=== PATIENT | female | born 1965 | race Caucasian/White ===

== ENCOUNTER 2023-05-29 09:38 | Inpatient (IN) | payer MEDICARE, OTHER ==
--- NOTE | 2023-05-29 10:05 | ED ---
General Adult HPI - General Chief complaint: Weakness Stated complaint: Weakness Time Seen by Provider: 05/29/23 09:43 Source: patient, EMS Mode of arrival: EMS Limitations: no limitations - History of Present Illness Initial comments: Patient is a pleasant 57-year-old female presenting to the emergency department with concerns for general weakness. Onset of symptoms was just yesterday. Patient feels weak all over. Patient is having difficulty using the restroom and had to use her parents wheelchair. No isolated area of weakness. No confusion. Patient did have 1 fall. Patient has noticed swelling since yesterday diffusely. Patient feels thirsty however states she has been eating and drinking normally. No difficulty or problems or changes with urination. No dyspnea. History of Ortez - Related Data Allergies Allergy/AdvReac Type Severity Reaction Status Date / Time Penicillins Allergy Anaphylaxis Verified 05/29/23 09:49 meperidine [From Demerol] AdvReac Unknown Verified 05/29/23 09:49 Review of Systems ROS Statement: Those systems with pertinent positive or pertinent negative responses have been documented in the HPI. ROS Other: All systems not noted in ROS Statement are negative. Constitutional: Denies: fever Eyes: Denies: eye pain ENT: Denies: ear pain Respiratory: Denies: dyspnea Cardiovascular: Denies: chest pain Endocrine: Reports: fatigue Gastrointestinal: Denies: abdominal pain Neurological: Reports: as per HPI. Denies: headache Past Medical History Past Medical History: Fibromyalgia Additional Past Medical History / Comment(s): interstitial cystitis, NALD, DDD, OA, gastroparesis, liver lesion, IBS, jayce danlos syndrome Past Surgical History: Appendectomy, Hysterectomy Additional Past Surgical History / Comment(s): exploratory lap, lymph node removal left leg, blood poisoning, spinal fusion, bladder mesh, endometrosis surgery, polyp removal Past Psychological History: Anxiety, Depression, Panic Disorder, PTSD Smoking Status: Current every day smoker, Light tobacco smoker Past Alcohol Use History: None Reported Past Drug Use History: None Reported General Exam Limitations: no limitations General appearance: alert, in no apparent distress Head exam: Present: atraumatic Eye exam: Present: normal appearance, PERRL, EOMI, other (Mild infraorbital edema) ENT exam: Present: mucous membranes dry Neck exam: Present: normal inspection Respiratory exam: Present: normal lung sounds bilaterally Cardiovascular Exam: Present: regular rate, normal rhythm GI/Abdominal exam: Present: soft. Absent: distended, tenderness Extremities exam: Present: pedal edema Neurological exam: Present: alert, oriented X3, CN II-XII intact. Absent: motor sensory deficit Expanded Motor strength exam: RUE: 5, LUE: 5, RLE: 5, LLE: 5 Eye Response: (4) open spontaneously Motor Response: (6) obeys commands Verbal Response: (5) oriented Psychiatric exam: Present: normal affect, normal mood Skin exam: Present: normal color Course Vital Signs 05/29/23 05/29/23 09:40 14:00 Temperature 97.8 F 98.5 F Pulse Rate 64 77 Respiratory 18 20 Rate Blood Pressure 111/60 127/70 O2 Sat by Pulse 95 96 Oximetry EKG Findings - EKG Results: EKG: interpreted by KALYN, sinus rhythm, normal axis, normal QRS, normal ST/T Medical Decision Making - Medical Decision Making Was pt. sent in by a medical professional or institution (, PA, TUNNEL ELASTIC OPERATOR LOCKSTITCH, urgent care, hospital, or long term...) When possible be specific @ -No Did you speak to anyone other than the patient for history (EMS, parent, family, police, friend...)? What history was obtained from this source @ -Family arrives later and adds that patient has actually had 3 syncopal episodes in the last 24 hours. Patient adds that she has been having some discomfort in her chest as well. Did you review nursing and triage notes (agree or disagree)? Why? @ -I reviewed and agree with nursing and triage notes Were old charts reviewed (outside hosp., previous admission, EMS record, old EKG, old radiological studies, urgent care reports/EKG's, long term records)? Report findings @ -No old charts were reviewed Differential Diagnosis (chest pain, altered mental status, abdominal pain women, abdominal pain men, vaginal bleeding, weakness, fever, dyspnea, syncope, headache, dizziness, GI bleed, back pain, seizure, CVA, palpatations, mental health, musculoskeletal)? @ -Differential Syncope: Valvular disease, hypertrophic cardiomyopathy, pulmonary embolism, tamponade, tachycardia, bradycardia, NJ, hypovolemia, hemorrhage, dissection, anemia, intracranial hemorrhage, seizure, hypoglycemia, carbon monoxide poisoning, this is not meant to be an all-inclusive list. EKG interpreted by me (3pts min.). @ -As above X-rays interpreted by me (1pt min.). @ -Chest x-ray shows no acute process CT interpreted by me (1pt min.). @ -CT brain shows no acute process U/S interpreted by me (1pt. min.). @ -None done What testing was considered but not performed or refused? (CT, X-rays, U/S, labs)? Why? @ -Added D-dimer with patient new history of syncope and chest What meds were considered but not given or refused? Why? @ -None Did you discuss the management of the patient with other professionals (professionals i.e. , PA, TUNNEL ELASTIC OPERATOR LOCKSTITCH, lab, RT, psych nurse, social problems specialist, analyst food and beverage, teacher, president and chief commercial officer, upper caser)? Give summary @ -[facility] physician, Dr. Haile covering for hospital call who will admit Was smoking cessation discussed for >3mins.? @ -No Was critical care preformed (if so, how long)? @ -No Were there social determinants of health that impacted care today? How? (Homelessness, low income, unemployed, alcoholism, drug addiction, transportation, low edu. Level, literacy, decrease access to med. care, usp, rehab)? @ -No Was there de-escalation of care discussed even if they declined (Discuss DNR or withdrawal of care, Hospice)? DNR status @ -No What co-morbidities impacted this encounter? (DM, HTN, Smoking, COPD, CAD, Cancer, CVA, ARF, Chemo, Hep., AIDS, mental health diagnosis, sleep apnea, morbid obesity)? @ -None Was patient admitted / discharged? Hospital course, mention meds given and route, prescriptions, significant lab abnormalities, going to OR and other pertinent info. @ -Patient reevaluated. Additional history stating patient has had syncopal episodes and some chest discomfort. Patient will be admitted with cardiac monitoring and further testing. Patient and family are updated. Admission orders written. Cardiac and neurology consults will be placed Undiagnosed new problem with uncertain prognosis? @ -No Drug Therapy requiring intensive monitoring for toxicity (Heparin, Nitro, Insulin, Cardizem)? @ -No Were any procedures done? @ -No Diagnosis/symptom? @ -Syncope Acute, or Chronic, or Acute on Chronic? @ -Acute Uncomplicated (without systemic symptoms) or Complicated (systemic symptoms)? @ -Default Side effects of treatment? @ -No Exacerbation, Progression, or Severe Exacerbation? @ -No Poses a threat to life or bodily function? How? (Chest pain, USA, NJ, pneumonia, PE, COPD, DKA, ARF, appy, cholecystitis, CVA, Diverticulitis, Homicidal, S uicidal, threat to staff... and all critical care pts) @ -No - Lab Data Result diagrams: 05/29/23 10:11 05/29/23 10:11 Lab Results 05/29/23 05/29/23 05/29/23 Range/Units 10:11 10:11 10:11 WBC 11.3 H (3.8-10.6) k/uL RBC 4.14 (3.80-5.40) m/uL Hgb 13.5 (11.4-16.0) gm/dL Hct 40.4 (34.0-46.0) % MCV 97.4 (80.0-100.0) fL MCH 32.6 (25.0-35.0) pg MCHC 33.5 (31.0-37.0) g/dL RDW 13.6 (11.5-15.5) % Plt Count 157 (150-450) k/uL MPV 8.6 Neutrophils % 54 % Lymphocytes % 38 % Monocytes % 5 % Eosinophils % 2 % Basophils % 1 % Neutrophils # 6.0 (1.3-7.7) k/uL Lymphocytes # 4.2 (1.0-4.8) k/uL Monocytes # 0.5 (0-1.0) k/uL Eosinophils # 0.2 (0-0.7) k/uL Basophils # 0.1 (0-0.2) k/uL PT 11.6 (10.0-12.5) sec INR 1.1 (<1.2) APTT 25.0 (22.0-30.0) sec Sodium 136 L (137-145) mmol/L Potassium 4.2 (3.5-5.1) mmol/L Chloride 105 (98-107) mmol/L Carbon Dioxide 26 (22-30) mmol/L Anion Gap 5 mmol/L BUN 14 (7-17) mg/dL Creatinine 0.67 (0.52-1.04) mg/dL Est GFR (CKD-EPI)AfAm >90 (>60 ml/min/1.73 sqM) Est GFR (CKD-EPI)NonAf >90 (>60 ml/min/1.73 sqM) Glucose 90 (74-99) mg/dL Plasma Lactic Acid Margarito (0.7-2.0) mmol/L Calcium 8.8 (8.4-10.2) mg/dL Magnesium 2.0 (1.6-2.3) mg/dL Total Bilirubin 0.4 (0.2-1.3) mg/dL AST 45 H (14-36) U/L ALT 24 (4-34) U/L Alkaline Phosphatase 65 (38-126) U/L Creatine Kinase 557 H (30-135) U/L Troponin I (0.000-0.034) ng/mL NT-Pro-B Natriuret Pep 1120 pg/mL Total Protein 6.6 (6.3-8.2) g/dL Albumin 4.2 (3.5-5.0) g/dL TSH 0.427 L (0.465-4.680) mIU/L Urine Color Urine Appearance (Clear) Urine pH (5.0-8.0) Ur Specific [place] (1.001-1.035) Urine Protein (Negative) Urine Glucose (UA) (Negative) Urine Ketones (Negative) Urine Blood (Negative) Urine Nitrite (Negative) Urine Bilirubin (Negative) Urine Urobilinogen (<2.0) mg/dL Ur Leukocyte Esterase (Negative) Urine RBC (0-5) /hpf Urine WBC (0-5) /hpf Urine WBC Clumps (None) /hpf Ur Squamous Epith Cells (0-4) /hpf Urine Bacteria (None) /hpf Urine Mucus (None) /hpf 05/29/23 05/29/23 05/29/23 Range/Units 10:11 10:11 10:11 WBC (3.8-10.6) k/uL RBC (3.80-5.40) m/uL Hgb (11.4-16.0) gm/dL Hct (34.0-46.0) % MCV (80.0-100.0) fL MCH (25.0-35.0) pg MCHC (31.0-37.0) g/dL RDW (11.5-15.5) % Plt Count (150-450) k/uL MPV Neutrophils % % Lymphocytes % % Monocytes % % Eosinophils % % Basophils % % Neutrophils # (1.3-7.7) k/uL Lymphocytes # (1.0-4.8) k/uL Monocytes # (0-1.0) k/uL Eosinophils # (0-0.7) k/uL Basophils # (0-0.2) k/uL PT (10.0-12.5) sec INR (<1.2) APTT (22.0-30.0) sec Sodium (137-145) mmol/L Potassium (3.5-5.1) mmol/L Chloride (98-107) mmol/L Carbon Dioxide (22-30) mmol/L Anion Gap mmol/L BUN (7-17) mg/dL Creatinine (0.52-1.04) mg/dL Est GFR (CKD-EPI)AfAm (>60 ml/min/1.73 sqM) Est GFR (CKD-EPI)NonAf (>60 ml/min/1.73 sqM) Glucose (74-99) mg/dL Plasma Lactic Acid Margarito 1.2 (0.7-2.0) mmol/L Calcium (8.4-10.2) mg/dL Magnesium (1.6-2.3) mg/dL Total Bilirubin (0.2-1.3) mg/dL AST (14-36) U/L ALT (4-34) U/L Alkaline Phosphatase (38-126) U/L Creatine Kinase (30-135) U/L Troponin I 0.012 (0.000-0.034) ng/mL NT-Pro-B Natriuret Pep pg/mL Total Protein (6.3-8.2) g/dL Albumin (3.5-5.0) g/dL TSH (0.465-4.680) mIU/L Urine Color Colorless Urine Appearance Clear (Clear) Urine pH 5.0 (5.0-8.0) Ur Specific [place] 1.007 (1.001-1.035) Urine Protein Negative (Negative) Urine Glucose (UA) 4+ H (Negative) Urine Ketones Negative (Negative) Urine Blood Negative (Negative) Urine Nitrite Positive H (Negative) Urine Bilirubin Negative (Negative) Urine Urobilinogen <2.0 (<2.0) mg/dL Ur Leukocyte Esterase Small H (Negative) Urine RBC 1 (0-5) /hpf Urine WBC 13 H (0-5) /hpf Urine WBC Clumps Few H (None) /hpf Ur Squamous Epith Cells 1 (0-4) /hpf Urine Bacteria Many H (None) /hpf Urine Mucus Rare H (None) /hpf Disposition Clinical Impression: Syncope Disposition: ADMITTED IP TO THIS HOSP Is patient prescribed a controlled substance at d/c from ED?: No Referrals: Nonstaff,Physician [Primary Care Provider] - 1-2 days Time of Disposition: 15:28
[2023-05-29 10:36] LABS: Basophils # (A) 0.1 k/uL (0-0.2); Basophils % (A) 1 %; Eosinophils # (A) 0.2 k/uL (0-0.7); Eosinophils % (A) 2 %; HCT 40.4 % (34.0-46.0); HGB 13.5 gm/dL (11.4-16.0); Lymphocytes # (A) 4.2 k/uL (1.0-4.8); Lymphocytes % (A) 38 %; MCH 32.6 pg (25.0-35.0); MCHC 33.5 g/dL (31.0-37.0); MCV 97.4 fL (80.0-100.0); Mean Platelet Volume 8.6; Monocytes # (A) 0.5 k/uL (0-1.0); Monocytes % (A) 5 %; Neutrophils % (A) 54 %; Platelet Count 157 k/uL (150-450); RBC 4.14 m/uL (3.80-5.40); RDW 13.6 % (11.5-15.5); WBC 11.3 k/uL (3.8-10.6)
[2023-05-29 10:50] LABS: ALT 24 U/L (4-34); AST 45 U/L (14-36); African American GFR (CKD) >90 (>60 ml/min/1.73 sqM); Albumin 4.2 g/dL (3.5-5.0); Alkaline Phosphatase 65 U/L (38-126); Anion Gap 5 mmol/L; Blood Urea Nitrogen 14 mg/dL (7-17); Calcium 8.8 mg/dL (8.4-10.2); Carbon Dioxide 26 mmol/L (22-30); Chloride 105 mmol/L (98-107); Creatine Kinase 557 U/L (30-135); Glucose 90 mg/dL (74-99); Non-African American GFR(CKD) >90 (>60 ml/min/1.73 sqM); Potassium 4.2 mmol/L (3.5-5.1); Sodium 136 mmol/L (137-145); Total Bilirubin 0.4 mg/dL (0.2-1.3); Total Protein 6.6 g/dL (6.3-8.2)
--- NOTE | 2023-05-29 10:50 | XR ---
EXAMINATION TYPE: XR chest 2V DATE OF EXAM: 05/29/2023 COMPARISON: NONE HISTORY: Weakness and bilateral edema TECHNIQUE: Frontal and lateral views of the chest are obtained. FINDINGS: There is right middle lobe increased opacity on 2 views. Left lung is clear. The cardiac s ilhouette size is within normal limits. Surgical change to the cervical spine is noted. IMPRESSION: Right middle lobe acute infiltrate and/or atelectasis.
[2023-05-29 10:59] LABS: NT-Pro-B-Type Natriuretic Pept 1120 pg/mL
[2023-05-29 11:01] LABS: INR 1.1 (<1.2); Prothrombin Time 11.6 sec (10.0-12.5)
[2023-05-29 12:32] LABS: Appearance,Urine Clear (Clear); Bacteria,Urine Many /hpf; Bilirubin,Urine Negative (Negative); Blood,Urine Negative (Negative); Color,Urine Colorless; Glucose,Urine (UA) 4+ (Negative); Ketones,Urine Negative (Negative); Leukocyte Esterase,Urine Small (Negative); Mucus,Urine Rare /hpf; Nitrite,Urine Positive (Negative); Protein,Urine Negative (Negative); RBC,Urine 1 /hpf (0-5); Specific Gravity,Urine 1.007 (1.001-1.035); Squamous Epithelial Cell,Urine 1 /hpf (0-4); Urobilinogen,Urine <2.0 mg/dL (<2.0); WBC,Urine 13 /hpf (0-5)
--- NOTE | 2023-05-29 14:29 | CT ---
EXAMINATION TYPE: CT brain wo con CT DLP: 1093.4 mGycm, Automated exposure control for dose reduction was used. DATE OF EXAM: 05/29/2023 2:06 PM COMPARISON: None. CLINICAL INDICATION:Female, 57 years old with history of weak, EYE SWELLING, weakness, UNEXPLAINED BR UISING TECHNIQUE: Brain: Axial CT images of the brain were obtained with coronal and sagittal reformats created and rev iewed. Contrast used: None. Oral contrast used: None. FINDINGS: Brain: Extra-axial spaces: No abnormal extra-axial fluid collections. Ventricular system: Within normal limits Cerebral parenchyma: No acute intraparenchymal hemorrhage or mass effect. The gonzalez-white junction is well differentiated. Cerebellum: Unremarkable. Mass effect: No evidence of midline shift. Intracranial vasculature: Atherosclerotic calcifications of the intracranial vessels. Soft tissues: Normal. Calvarium/osseous structures: No depressed skull fracture. Paranasal sinuses and mastoid air cells: Mild scattered paranasal sinus disease. Visualized orbits: Orbital contents are intact. The intraconal extraconal fat is maintained. IMPRESSION: No acute intracranial process.
[2023-05-29] MEDS ORDERED: NALOXONE 0.4 MG/ML 1 ML VIAL IV PRN (15:23)
[2023-05-29] MEDS ORDERED: ACETAMINOPHEN TAB 325 MG TAB PO PRN (15:23)
[2023-05-29] MEDS ORDERED: LORazepam 0.5 MG TAB PO PRN (15:23)
[2023-05-29 17:30] LABS: T4, Free (Free Thyroxine) 1.22 ng/dL (0.78-2.19)
[2023-05-29] MEDS: LORazepam 2 MG/ML INJ IV STA (17:37)
[2023-05-29] MEDS ORDERED: DIPHENOX-ATROP 2.5-0.025 MG 1 EACH TAB PO PRN (17:57)
[2023-05-29] MEDS ORDERED: clonazePAM 1 MG TAB PO PRN (17:57)
--- NOTE | 2023-05-29 18:41 | P.HPIM ---
History of Present Illness H&P Date: 05/29/23 Chief Complaint: Syncope/fall 57-year-old female, history of hypertension, hyperlipidemia, hypothyroidism, diabetes mellitus type 2 presenting to the emergency department with concerns for general weakness. Onset of symptoms was just yesterday. Patient feels weak all over. Patient is having difficulty using the restroom and had to use her parents wheelchair. No isolated area of weakness. No confusion. Patient does report syncopal episode with fall. Patient has noticed swelling since yesterday diffusely. Patient feels thirsty however states she has been eating and drinking normally. No difficulty or problems or changes with urination. No dyspnea. History of Ortez -Patient is a very poor historian and upon further questioning patient reports that she has had multiple syncopal episodes and some chest discomfort in the past week which prompted her to present to ED for further evaluation Blood work completed in ED reveals WBC of 11.3, hemoglobin of 13.5 and platelet count of 157, sodium 136, potassium 4.2, BUN/creatinine of 14/0.67 and blood glucose of 90, CK elevated at 557 troponin is less than 0.012, BNP of 1120, TSH low at 0.427 Urine analysis reveals 4+ glucose nitrates and leukocyte esterase positive, WBCs and many bacteria CT of the brain is negative for any acute intracranial process Chest x-ray reveals right middle lobe acute infiltrate Review of Systems REVIEW OF SYSTEMS: CONSTITUTIONAL: No fever, no malaise, no fatigue. HEENT: No recent visual problems or hearing problems. Denied any sore throat. CARDIOVASCULAR: No chest pain, orthopnea, PND, no palpitations, no syncope. PULMONARY: No shortness of breath, no cough, no hemoptysis. GASTROINTESTINAL: No diarrhea, no nausea, no vomiting, no abdominal pain. NEUROLOGICAL: No headaches, no weakness, no numbness. HEMATOLOGICAL: Denies any bleeding or petechiae. GENITOURINARY: Denies any burning micturition, frequency, or urgency. MUSCULOSKELETAL/RHEUMATOLOGICAL: Denies any joint pain, swelling, or any muscle pain. ENDOCRINE: Denies any polyuria or polydipsia. The rest of the 14-point review of systems is negative. Past Medical History Past Medical History: Fibromyalgia Additional Past Medical History / Comment(s): interstitial cystitis, NALD, DDD, OA, gastroparesis, liver lesion, IBS, jayce danlos syndrome Past Surgical History: Appendectomy, Hysterectomy Additional Past Surgical History / Comment(s): exploratory lap, lymph node removal left leg, blood poisoning, spinal fusion, bladder mesh, endometrosis surgery, polyp removal Past Psychological History: Anxiety, Depression, Panic Disorder, PTSD Smoking Status: Current every day smoker, Light tobacco smoker Past Alcohol Use History: None Reported Past Drug Use History: None Reported Medications and Allergies Home Medications Medication Instructions Recorded Confirmed Type Albuterol Inhaler [Ventolin Hfa 1 - 2 puff INHALATION RT-Q6H PRN 05/29/23 05/29/23 History Inhaler] Buprenorphine HCl/Naloxone HCl 1 film SL DAILY 05/29/23 05/29/23 History [Buprenorphine-Nalox 2-0.5MG Fm] Diphenoxylate HCl/Atropine 1 tab PO QID PRN 05/29/23 05/29/23 History [Lomotil 2.5-0.025 mg Tablet] Empagliflozin [Jardiance] 25 mg PO DAILY 05/29/23 05/29/23 History Gabapentin 600 mg PO TID 05/29/23 05/29/23 History Levothyroxine Sodium [Synthroid] 50 mcg PO DAILY 05/29/23 05/29/23 History Midodrine [ProAmatine] 5 mg PO BID 05/29/23 05/29/23 History Ondansetron Odt [Zofran Odt] 4 mg PO Q6H PRN MDD A 05/29/23 05/29/23 History Oxybutynin Chloride [oxyBUTYnin 10 mg PO HS 05/29/23 05/29/23 History chloride ER] Prazosin [Minipress] 1 mg PO HS 05/29/23 05/29/23 History Rosuvastatin Calcium 5 mg PO HS 05/29/23 05/29/23 History clonazePAM [KlonoPIN] 1 mg PO BID 05/29/23 05/29/23 History clonazePAM [KlonoPIN] 1 mg PO DAILY PRN 05/29/23 05/29/23 History fluvoxaMINE MALEATE [Luvox] 150 mg PO BID 05/29/23 05/29/23 History glipiZIDE [Glucotrol] 10 mg PO AC-BRKFST 05/29/23 05/29/23 History hydrOXYzine HCL [Atarax] 50 mg PO HS 05/29/23 05/29/23 History lidocaine HCL [Aspercreme 1 applic TOPICAL QID PRN 05/29/23 05/29/23 History Lidocaine] metFORMIN HCL ER [Glucophage XR] 1,000 mg PO W/SUPPER 05/29/23 05/29/23 History methocarbamoL [Robaxin] 500 mg PO TID PRN 05/29/23 05/29/23 History sitaGLIPtin [Januvia] 100 mg PO DAILY 05/29/23 05/29/23 History tiZANidine [Zanaflex] 4 mg PO Q8HR PRN 05/29/23 05/29/23 History traZODone HCL [Desyrel] 50 mg PO HS 05/29/23 05/29/23 History Allergies Allergy/AdvReac Type Severity Reaction Status Date / Time Penicillins Allergy Anaphylaxis Verified 05/29/23 17:43 meperidine [From Demerol] AdvReac Unknown Verified 05/29/23 17:43 Physical Exam Vitals: Vital Signs Temp Pulse Resp BP Pulse Ox 05/29/23 16:42 83 18 97/50 96 05/29/23 14:00 98.5 F 77 20 127/70 96 05/29/23 09:40 97.8 F 64 18 111/60 95 Intake and Output 05/29/23 05/29/23 05/29/23 06:59 14:59 22:59 Other: Weight 104.326 kg General appearance: alert, in no apparent distress Head exam: Present: atraumatic Eye exam: Present: normal appearance, PERRL, EOMI, other (Mild infraorbital edema) ENT exam: Present: mucous membranes dry Respiratory exam: Present: normal lung sounds bilaterally Cardiovascular Exam: Present: regular rate, normal rhythm GI/Abdominal exam: Present: soft. Absent: distended, tenderness Extremities exam: Present: pedal edema Neurological exam: Present: alert, oriented X3, CN II-XII intact. Absent: motor sensory deficit Motor strength exam: RUE: 5, LUE: 5, RLE: 5, LLE: 5 Psychiatric exam: Present: normal affect, normal mood Skin exam: Present: normal color Results CBC & Chem 7: 05/29/23 10:11 05/29/23 10:11 Labs: Abnormal Lab Results - Last 24 Hours (Table) 05/29/23 05/29/23 05/29/23 Range/Units 10:11 10:11 10:11 WBC 11.3 H (3.8-10.6) k/uL Sodium 136 L (137-145) mmol/L AST 45 H (14-36) U/L Creatine Kinase 557 H (30-135) U/L TSH 0.427 L (0.465-4.680) mIU/L Urine Glucose (UA) 4+ H (Negative) Urine Nitrite Positive H (Negative) Ur Leukocyte Esterase Small H (Negative) Urine WBC 13 H (0-5) /hpf Urine WBC Clumps Few H (None) /hpf Urine Bacteria Many H (None) /hpf Urine Mucus Rare H (None) /hpf Assessment and Plan Assessment: 1. Acute syncope; patient reports multiple episodes of syncope and fall; reports last episode was associated with chest discomfort; we will admit to telemetry; monitor EKG and trend troponin -- Cardiology is consulted; appreciate recommendations 2. UTI; UA is positive for WBCs, bacteria, leukocyte esterase and nitrates; patient has been placed on IV Levaquin; adjust antibiotics once culture results are available 3. Possible pneumonia; patient has been placed on Levaquin 500 milligrams daily; will add bronchodilator nebulizer treatments; monitor CBC, CRP and procalcitonin 4. Fall with elevated CK; mild rhabdomyolysis; continue with IV fluid hydration 5. Hypertension; prazosin 1 mg nightly 6. Hyperlipidemia; Crestor 5 mg p.o. nightly 7. Hypothyroidism; patient is currently on levothyroxine 50 mcg daily; TSH is low with normal free T4 and T3; will continue same dose 8. Diabetes mellitus type 2; patient is currently on glipizide, Jardiance and metformin; we will hold glipizide while inpatient; monitor Accu-Cheks ACHS with insulin sliding scale 9. Anxiety/obsessive-compulsive disorder; patient is currently on Luvox 150 mg twice daily, Klonopin 1 mg twice daily, hydroxyzine 50 mg p.o. nightly and trazodone 50 mg nightly DVT prophylaxis; SCDs/subcu heparin CODE STATUS; full code
[2023-05-29] MEDS: MORPHINE SULFATE 4 MG/ML SYRINGE IV PRN (19:22)
[2023-05-29] MEDS: LEVOFLOXACIN 500MG-D5W PMX 500 MG in DEXTROSE/WATER 1 100ML.BAG IVPB SCH (19:27)
[2023-05-29] MEDS: GABAPENTIN 300 MG CAP PO SCH (22:07)
[2023-05-29] MEDS: ATORVASTATIN 10 MG TAB PO SCH (22:08)
[2023-05-29] MEDS: PRAZOSIN 1 MG CAP PO SCH (22:09)
[2023-05-29] MEDS: MIDODRINE 5 MG TAB PO SCH (22:09)
[2023-05-29] MEDS: traZODone HCL 50 MG TAB PO SCH (22:09)
[2023-05-29] MEDS: clonazePAM 1 MG TAB PO SCH (22:09)
[2023-05-29] MEDS: tiZANidine 4 MG TAB PO PRN (22:52)
[2023-05-29] MEDS: OXYBUTYNIN 10 MG TAB.ER.24 PO SCH (22:52)
[2023-05-29] MEDS: hydrOXYzine HCL 25 MG TAB PO SCH (22:52)
[2023-05-30] MEDS: LEVOTHYROXINE 50 MCG TAB PO SCH (05:39)
[2023-05-30] MEDS: metFORMIN 500 MG TAB PO SCH (08:07)
[2023-05-30 08:15] LABS: Basophils % (A) 1 %; Eosinophils # (A) 0.3 k/uL (0-0.7); Eosinophils % (A) 5 %; HCT 40.9 % (34.0-46.0); HGB 13.1 gm/dL (11.4-16.0); Lymphocytes # (A) 3.5 k/uL (1.0-4.8); Lymphocytes % (A) 55 %; MCH 31.9 pg (25.0-35.0); MCHC 32.1 g/dL (31.0-37.0); MCV 99.4 fL (80.0-100.0); Mean Platelet Volume 8.2; Monocytes # (A) 0.4 k/uL (0-1.0); Monocytes % (A) 6 %; Neutrophils % (A) 31 %; Platelet Count 137 k/uL (150-450); RBC 4.12 m/uL (3.80-5.40); RDW 13.7 % (11.5-15.5); WBC 6.3 k/uL (3.8-10.6)
[2023-05-30 08:25] LABS: ALT 24 U/L (4-34); AST 51 U/L (14-36); African American GFR (CKD) >90 (>60 ml/min/1.73 sqM); Albumin 3.7 g/dL (3.5-5.0); Albumin/Globulin Ratio 1.6; Alkaline Phosphatase 86 U/L (38-126); Anion Gap 6 mmol/L; Blood Urea Nitrogen 14 mg/dL (7-17); Calcium 8.5 mg/dL (8.4-10.2); Carbon Dioxide 29 mmol/L (22-30); Chloride 105 mmol/L (98-107); Globulin 2.3 g/dL; Glucose 162 mg/dL (74-99); Non-African American GFR(CKD) 89 (>60 ml/min/1.73 sqM); Sodium 140 mmol/L (137-145); Total Bilirubin 0.2 mg/dL (0.2-1.3)
[2023-05-30] MEDS: DAPAGLIFLOZIN PROPANEDIOL 10 MG TABLET PO SCH (08:44)
[2023-05-30] MEDS: NALOXONE HCL SUBLINGUAL SCH (09:20)
[2023-05-30] MEDS: [UNRECOGNIZED DRUG - OTHER] SUBLINGUAL SCH (09:20)
[2023-05-30] MEDS: BUPRENORPHINE HCL SUBLINGUAL SCH (09:20)
--- NOTE | 2023-05-30 11:22 | P.CNNES ---
History of Present Illness Consult date: 05/30/23 Requesting physician: Salvatore Mcelroy Reason for Consult: syncope History of Present Illness: This is a 57-year-old woman who presented emergency department because of recurrent passing out episode with posturing/covulsion. According to the patient Wednesday night to overnight that day she stated that the she was a try to the bathroom and the she was having pain throughout all her body all extremities she stated that she was a passing out intermittently in and out very briefly and she stated that the she is with these episodes she'll have posture of her extremities as well as face in which she feels the face is rotated towards one side and body will be posturing and is very brief. She stated that she had a urinary incontinence. She had numerous episodes like dose. In the past she would pass out but she stated that the that happened because her blood pressure would go down. She stated in the last week her blood pressure seems to be coming down. She stated that she has orthostatic hypotension and she is on mid odrine. She is on the the same medication for a while and there is no new medication. She was doing good with midodrine and has been on it since October 2022. She stated that yesterday her oxygen the desatted said to the 50s to 60s. She denies any official history of seizures. She does have a sister that has history of seizure. She feels her whole extremities was the swelling as well as face but currently it's somewhat resolving. She has underlying history of neuropathy of the feet, anxiety, major depression, diabetes. She has also history of CPTSD. Of note for her neuropathy patient is on gabapentin 600 mg 1 tablet the 3 times a day. She is on Midrin 1 mg twice a day, Klonopin 1 mg twice a day, trazodone, tizanidine, prazosin. Some of the workup during his hospital visit consisted of: CK levels 557, AST is 45, sodium is 136, glucose is 90, TSH is 0.4-7 the free T4 is 1. due to Calcium is 8.8 Plasma lactic acid vein: 1.2 Urinalysis seems possible for acute UTI. Then nitrate is positive, leukocyte esterase small, urine bacteria is many. CT of the head is reported as no acute intracranial process. Personally reviewed the CT and agree with the report. EKG is reported as sinus rhythm. Intermediate axis. Low QRS voltage. Review of Systems Review of system: The 12 point system was reviewed and apparent positive and negative per HPI. Past Medical History Past Medical History: Fibromyalgia Additional Past Medical History / Comment(s): interstitial cystitis, NALD, DDD, OA, gastroparesis, liver lesion, IBS, jayce danlos syndrome Past Surgical History: Appendectomy, Hysterectomy Additional Past Surgical History / Comment(s): exploratory lap, lymph node removal left leg, blood poisoning, spinal fusion, bladder mesh, endometrosis surgery, polyp removal Past Psychological History: Anxiety, Depression, Panic Disorder, PTSD Smoking Status: Current every day smoker, Light tobacco smoker Past Alcohol Use History: None Reported Past Drug Use History: None Reported Medications and Allergies Home Medications Medication Instructions Recorded Confirmed Type Albuterol Inhaler [Ventolin Hfa 1 - 2 puff INHALATION RT-Q6H PRN 05/29/23 05/29/23 History Inhaler] Buprenorphine HCl/Naloxone HCl 1 film SL DAILY 05/29/23 05/29/23 History [Buprenorphine-Nalox 2-0.5MG Fm] Diphenoxylate HCl/Atropine 1 tab PO QID PRN 05/29/23 05/29/23 History [Lomotil 2.5-0.025 mg Tablet] Empagliflozin [Jardiance] 25 mg PO DAILY 05/29/23 05/29/23 History Gabapentin 600 mg PO TID 05/29/23 05/29/23 History Levothyroxine Sodium [Synthroid] 50 mcg PO DAILY 05/29/23 05/29/23 History Midodrine [ProAmatine] 5 mg PO BID 05/29/23 05/29/23 History Ondansetron Odt [Zofran Odt] 4 mg PO Q6H PRN MDD A 05/29/23 05/29/23 History Oxybutynin Chloride [oxyBUTYnin 10 mg PO HS 05/29/23 05/29/23 History chloride ER] Prazosin [Minipress] 1 mg PO HS 05/29/23 05/29/23 History Rosuvastatin Calcium 5 mg PO HS 05/29/23 05/29/23 History clonazePAM [KlonoPIN] 1 mg PO BID 05/29/23 05/29/23 History clonazePAM [KlonoPIN] 1 mg PO DAILY PRN 05/29/23 05/29/23 History fluvoxaMINE MALEATE [Luvox] 150 mg PO BID 05/29/23 05/29/23 History glipiZIDE [Glucotrol] 10 mg PO AC-BRKFST 05/29/23 05/29/23 History hydrOXYzine HCL [Atarax] 50 mg PO HS 05/29/23 05/29/23 History lidocaine HCL [Aspercreme 1 applic TOPICAL QID PRN 05/29/23 05/29/23 History Lidocaine] metFORMIN HCL ER [Glucophage XR] 1,000 mg PO W/SUPPER 05/29/23 05/29/23 History methocarbamoL [Robaxin] 500 mg PO TID PRN 05/29/23 05/29/23 History sitaGLIPtin [Januvia] 100 mg PO DAILY 05/29/23 05/29/23 History tiZANidine [Zanaflex] 4 mg PO Q8HR PRN 05/29/23 05/29/23 History traZODone HCL [Desyrel] 50 mg PO HS 05/29/23 05/29/23 History Allergies Allergy/AdvReac Type Severity Reaction Status Date / Time Penicillins Allergy Anaphylaxis Verified 05/29/23 17:43 meperidine [From Demerol] AdvReac Unknown Verified 05/29/23 17:43 Physical Examination - Vital Signs Vital Signs: Vital Signs Temp Pulse Resp BP Pulse Ox 05/30/23 08:53 87 16 130/74 95 05/30/23 07:39 57 L 16 98/58 95 05/30/23 04:00 53 L 18 115/62 96 05/30/23 02:16 61 16 104/70 95 05/29/23 23:57 64 100/53 96 05/29/23 22:04 87 20 120/65 95 05/29/23 19:12 80 18 112/66 97 05/29/23 16:42 83 18 97/50 96 05/29/23 14:00 98.5 F 77 20 127/70 96 GENERAL: The patient is lying in bed and is not in acute distress. NEUROLOGICAL: Higher mental function: The patient is awake, alert, oriented to self, place and time. Patient is following commands. No aphasia and no neglect. Cranial nerves: The pupils are round, equal and reactive to light and accommodation. Visual daniels are full to confrontation throughout. Extraocular movement is intact no nystagmus is noted. Facial sensation is normal to touch throughout. Does appear to have swelling of face that is mild.The facial strength is normal throughout. Hearing is normal bilaterally to hand rub. Tongue is midline and moved [id number] without any difficulty. No dysarthria is noted. Shoulder shrug is normal bilaterally. Motor: The strength is 5 over 5 throughout. Normal tone and bulk. Has swelling in distal extremities that is mild. Cerebellum: Normal finger to nose heel to chin bilaterally. Sensation: Sensation is normal to touch throughout. Reflexes (right/left): 2+ throughout. Plantars are downgoing bilaterally. Results - Laboratory Findings CBC and BMP: 05/30/23 07:44 05/30/23 07:44 Abnormal Lab Findings: Abnormal Labs 05/29/23 05/29/23 05/29/23 10:11 10:11 10:11 WBC 11.3 H Plt Count Sodium 136 L Glucose AST 45 H Creatine Kinase 557 H Total Protein TSH 0.427 L Urine Glucose (UA) 4+ H Urine Nitrite Positive H Ur Leukocyte Esterase Small H Urine WBC 13 H Urine WBC Clumps Few H Urine Bacteria Many H Urine Mucus Rare H 05/30/23 05/30/23 07:44 07:44 WBC Plt Count 137 L Sodium Glucose 162 H AST 51 H Creatine Kinase Total Protein 6.0 L TSH Urine Glucose (UA) Urine Nitrite Ur Leukocyte Esterase Urine WBC Urine WBC Clumps Urine Bacteria Urine Mucus Assessment and Plan Assessment: This is a 57-year-old woman who presented emergency department because of intermittent the recurrent passing out and with these episodes she stated that t hat she was having abnormal movement of the face and posturing of extremity. She also noticed a whole body was in pain and the head swelling of her face and extremities. She stated that she passed out before but she was told is because of due to orthostatic hypotension and she is on midodrine since October 2022. Recurrent syncopal episode with convulsion/posturing: Rule out seizure. Generalized edema--unsure cause. Unsure if due to medication induced (Gabapentin usually cause peripheral edema) Possible acute UTI. Orthostatic hypotension and is on Midodrine History of an anxiety and major depression History of CPTSD Tobacco use but is cutting down (currently smoking 1-2 cigarettes daily). Family history of seizure (sister) Plan: I ordered a routine EEG to rule out any epileptiform discharge or active seizure. Also ordered MRI Brain seizure protocol. I notified the patient that I'm concerned about possible seizures from the clinical presentation as well as a family history of seizures. She wants to hold off until the workup is complete. Even if negative is negative consider starting her on Vimpat and not Keppra especially with a significant psychiatric but will defer that final decision for covering neurologist tomorrow. Per the [place] DMV if it's a seizure or syncopal episode not related to seizure, to avoid driving for 6 month until seizure-free, avoid height, avoid using heavy machinery or swimming unassisted Placed on seizure precaution and pads. Ordered orthostatic vitals. Cardiology is consulted for syncopal episodes. Patient was counseled on tobacco cessation. We'll defer the rest of the medical measure the primary and other specialists The plan is discussed with patient. Thank you for the consultation. Dr. Vallejo will resume neurology service tomorrow A.M. Time with Patient: Greater than 30
[2023-05-30 12:09] LABS: Glucose,Whole Blood 141 mg/dL (70-110)
[2023-05-30] MEDS: methocarbamoL 500 MG TAB PO PRN (13:12)
[2023-05-30] MEDS: traMADol 50 MG TAB PO PRN (13:12)
--- NOTE | 2023-05-30 13:40 | P.CRDCN ---
History of Present Illness Consult date: 05/30/23 Chief complaint: Change in mental status History of present illness: This is a 57-year-old female patient with a past medical history significant for overweight and sleep apnea currently she has not been using a CPAP machine as well as diabetes and dyslipidemia and multiple comorbid conditions. She was brought to the hospital by ambulance. The patient has been experiencing intermittent episodes of change in mental status witnessed by her sister. The change in mental status seems to be consistent with seizure. The patient has been experiencing upper and lower extremities spasming movement associated with incontinence. Beside that she describes intermittent episodes of chest discomfort. The discomfort is in the middle of the chest as a dull kind of feeling and sometimes sharp kind of feeling with no radiation to the arms or neck or shoulders or back and no heart racing or fluttering. She stated that she follows with a customer service advocate in [facility] and in January 2023 she underwent further cardiac testing including stress test and echocardiogram. She underwent workup during her hospital stay including an EKG showing sinus mechanism with no significant ST or T wave abnormalities and also she did not have any episode of arrhythmia while she is here. Troponin came in to be unremarkable. CT scan of the brain came in to be unremarkable neurology is on the case as well. The examination is remarkable for stable vital signs with regular rate and rhythm and clear breathing sounds bilaterally and no edema was noted. Assessment Change in mental status clinically is consistent with seizure Intermittent episodes of chest discomfort Multiple comorbid conditions Plan Monitor the patient for arrhythmia Obtain a copy of the previous cardiac testing including the stress test Obtain an echocardiogram with Doppler She was ruled out for acute coronary syndrome Follow-up with the patient Past Medical History Past Medical History: Fibromyalgia Additional Past Medical History / Comment(s): interstitial cystitis, NALD, DDD, OA, gastroparesis, liver lesion, IBS, jayce danlos syndrome Past Surgical History: Appendectomy, Hysterectomy Additional Past Surgical History / Comment(s): exploratory lap, lymph node removal left leg, blood poisoning, spinal fusion, bladder mesh, endometrosis surgery, polyp removal Past Psychological History: Anxiety, Depression, Panic Disorder, PTSD Smoking Status: Current every day smoker, Light tobacco smoker Past Alcohol Use History: None Reported Past Drug Use History: None Reported Medications and Allergies Home Medications Medication Instructions Recorded Confirmed Type Albuterol Inhaler [Ventolin Hfa 1 - 2 puff INHALATION RT-Q6H PRN 05/29/23 05/29/23 History Inhaler] Buprenorphine HCl/Naloxone HCl 1 film SL DAILY 05/29/23 05/29/23 History [Buprenorphine-Nalox 2-0.5MG Fm] Diphenoxylate HCl/Atropine 1 tab PO QID PRN 05/29/23 05/29/23 History [Lomotil 2.5-0.025 mg Tablet] Empagliflozin [Jardiance] 25 mg PO DAILY 05/29/23 05/29/23 History Gabapentin 600 mg PO TID 05/29/23 05/29/23 History Levothyroxine Sodium [Synthroid] 50 mcg PO DAILY 05/29/23 05/29/23 History Midodrine [ProAmatine] 5 mg PO BID 05/29/23 05/29/23 History Ondansetron Odt [Zofran Odt] 4 mg PO Q6H PRN MDD A 05/29/23 05/29/23 History Oxybutynin Chloride [oxyBUTYnin 10 mg PO HS 05/29/23 05/29/23 History chloride ER] Prazosin [Minipress] 1 mg PO HS 05/29/23 05/29/23 History Rosuvastatin Calcium 5 mg PO HS 05/29/23 05/29/23 History clonazePAM [KlonoPIN] 1 mg PO BID 05/29/23 05/29/23 History clonazePAM [KlonoPIN] 1 mg PO DAILY PRN 05/29/23 05/29/23 History fluvoxaMINE MALEATE [Luvox] 150 mg PO BID 05/29/23 05/29/23 History glipiZIDE [Glucotrol] 10 mg PO AC-BRKFST 05/29/23 05/29/23 History hydrOXYzine HCL [Atarax] 50 mg PO HS 05/29/23 05/29/23 History lidocaine HCL [Aspercreme 1 applic TOPICAL QID PRN 05/29/23 05/29/23 History Lidocaine] metFORMIN HCL ER [Glucophage XR] 1,000 mg PO W/SUPPER 05/29/23 05/29/23 History methocarbamoL [Robaxin] 500 mg PO TID PRN 05/29/23 05/29/23 History sitaGLIPtin [Januvia] 100 mg PO DAILY 05/29/23 05/29/23 History tiZANidine [Zanaflex] 4 mg PO Q8HR PRN 05/29/23 05/29/23 History traZODone HCL [Desyrel] 50 mg PO HS 05/29/23 05/29/23 History Allergies Allergy/AdvReac Type Severity Reaction Status Date / Time Penicillins Allergy Anaphylaxis Verified 05/29/23 17:43 meperidine [From Demerol] AdvReac Unknown Verified 05/29/23 17:43 Physical Exam Vitals: Vital Signs Temp Pulse Resp BP Pulse Ox 05/30/23 13:00 83 20 122/55 97 05/30/23 08:53 87 16 130/74 95 05/30/23 07:39 57 L 16 98/58 95 05/30/23 04:00 53 L 18 115/62 96 05/30/23 02:16 61 16 104/70 95 05/29/23 23:57 64 100/53 96 05/29/23 22:04 87 20 120/65 95 05/29/23 19:12 80 18 112/66 97 05/29/23 16:42 83 18 97/50 96 05/29/23 14:00 98.5 F 77 20 127/70 96 Results 05/30/23 07:44 05/30/23 07:44 Cardiac Enzymes 05/29/23 05/29/23 05/30/23 Range/Units 17:35 20:51 07:44 AST 51 H (14-36) U/L Troponin I <0.012 <0.012 (0.000-0.034) ng/mL CBC 05/30/23 Range/Units 07:44 WBC 6.3 (3.8-10.6) k/uL RBC 4.12 (3.80-5.40) m/uL Hgb 13.1 (11.4-16.0) gm/dL Hct 40.9 (34.0-46.0) % Plt Count 137 L (150-450) k/uL Comprehensive Metabolic Panel 05/30/23 Range/Units 07:44 Sodium 140 (137-145) mmol/L Potassium 4.0 (3.5-5.1) mmol/L Chloride 105 (98-107) mmol/L Carbon Dioxide 29 (22-30) mmol/L BUN 14 (7-17) mg/dL Creatinine 0.76 (0.52-1.04) mg/dL Glucose 162 H (74-99) mg/dL Calcium 8.5 (8.4-10.2) mg/dL AST 51 H (14-36) U/L ALT 24 (4-34) U/L Alkaline Phosphatase 86 (38-126) U/L Total Protein 6.0 L (6.3-8.2) g/dL Albumin 3.7 (3.5-5.0) g/dL Current Medications Generic Name Dose Route Start Last Admin Trade Name Freq PRN Reason Stop Dose Admin Acetaminophen 650 mg 05/29/23 15:23 Acetaminophen Tab 325 Mg Tab PO Q6HR PRN Mild Pain or Fever > 100.5 Atorvastatin Calcium 10 mg 05/29/23 21:00 05/29/23 22:08 Atorvastatin 10 Mg Tab PO 10 mg HS JOSE FRANCISCO Administration Clonazepam 1 mg 05/29/23 21:00 05/30/23 08:07 Clonazepam 1 Mg Tab PO 1 mg BID JOSE FRANCISCO Administration Clonazepam 1 mg 05/29/23 17:57 Clonazepam 1 Mg Tab PO DAILY PRN Anxiety Dapagliflozin 10 mg 05/30/23 09:00 05/30/23 08:44 Dapagliflozin Propanediol 10 Mg Tablet PO 10 mg DAILY JOSE FRANCISCO Administration Diphenoxylate HCl/Atropine 1 each 05/29/23 17:57 Diphenox-Atrop 2.5-0.025 Mg 1 Each Tab PO QID PRN Diarrhea Fluvoxamine Maleate 150 mg 05/29/23 21:00 05/30/23 08:45 Fluvoxamine 50 Mg Tab PO 150 mg BID JOSE FRANCISCO Administration Gabapentin 600 mg 05/29/23 22:00 05/30/23 08:44 Gabapentin 300 Mg Cap PO 600 mg TID JOSE FRANCISCO Administration Hydroxyzine HCl 50 mg 05/29/23 21:00 05/29/23 22:52 Hydroxyzine Hcl 25 Mg Tab PO 50 mg HS JOSE FRANCISCO Administration Levofloxacin 500 mg/ IV 100 mls @ 100 mls/hr 05/29/23 18:00 05/29/23 19:27 Solution IVPB 100 mls/hr Q24H JOSE FRANCISCO Administration Levothyroxine Sodium 50 mcg 05/30/23 06:30 05/30/23 05:39 Levothyroxine 50 Mcg Tab PO 50 mcg DAILY@0630 JOSE FRANCISCO Administration Lorazepam 0.5 mg 05/29/23 15:23 Lorazepam 0.5 Mg Tab PO Q6HR PRN Anxiety Metformin HCl 500 mg 05/30/23 07:30 05/30/23 08:07 Metformin 500 Mg Tab PO 500 mg BID-W/MEALS JOSE FRANCISCO Administration Methocarbamol 500 mg 05/29/23 17:57 05/30/23 13:12 Methocarbamol 500 Mg Tab PO 500 mg TID PRN Administration Muscle Pain Midodrine 5 mg 05/29/23 21:00 05/30/23 08:07 Midodrine 5 Mg Tab PO 5 mg BID JOSE FRANCISCO Administration Morphine Sulfate 4 mg 05/29/23 15:23 05/30/23 13:11 Morphine Sulfate 4 Mg/Ml Syringe IV 4 mg Q4HR PRN Administration Severe Pain (Scale 7 to 10) Naloxone HCl 0.2 mg 05/29/23 15:23 Naloxone 0.4 Mg/Ml 1 Ml Vial IV Q2M PRN Opioid Reversal Non-Formulary Medication 1 film 05/30/23 09:00 05/30/23 09:20 Buprenorphine Hcl/Naloxone Hcl [Buprenorphine-Nalox 2-0.5mg Fm] SUBLINGUAL 1 film DAILY JOSE FRANCISCO Administration Oxybutynin Chloride 10 mg 05/29/23 21:00 05/29/23 22:52 Oxybutynin 10 Mg Tab.Er.24 PO 10 mg HS JOSE FRANCISCO Administration Prazosin HCl 1 mg 05/29/23 21:00 05/29/23 22:09 Prazosin 1 Mg Cap PO 1 mg HS JOSE FRANCISCO Administration Tizanidine HCl 4 mg 05/29/23 17:57 05/29/23 22:52 Tizanidine 4 Mg Tab PO 4 mg Q8HR PRN Administration Muscle Pain Tramadol HCl 50 mg 05/29/23 15:23 05/30/23 13:12 Tramadol 50 Mg Tab PO 50 mg Q6H PRN Administration Moderate Pain (Scale 4 to 6) Trazodone HCl 50 mg 05/29/23 21:00 05/29/23 22:09 Trazodone Hcl 50 Mg Tab PO 50 mg HS JOSE FRANCISCO Administration 05/30/23 07:44 05/30/23 07:44
--- NOTE | 2023-05-30 17:34 | P.PN ---
Subjective Progress Note Date: 05/30/23 57-year-old female, history of hypertension, hyperlipidemia, hypothyroidism, diabetes mellitus type 2 presenting to the emergency department with concerns for general weakness. Onset of symptoms was just yesterday. Patient feels weak all over. Patient is having difficulty using the restroom and had to use her parents wheelchair. No isolated area of weakness. No confusion. Patient does report syncopal episode with fall. Patient has noticed swelling since yesterday diffusely. Patient feels thirsty however states she has been eating and drinking normally. No difficulty or problems or changes with urination. No dyspnea. History of [place]te[place] -Patient is a very poor historian and upon further questioning patient reports that she has had multiple syncopal episodes and some chest discomfort in the past week which prompted her to present to ED for further evaluation Blood work completed in ED reveals WBC of 11.3, hemoglobin of 13.5 and platelet count of 157, sodium 136, potassium 4.2, BUN/creatinine of 14/0.67 and blood glucose of 90, CK elevated at 557 troponin is less than 0.012, BNP of 1120, TSH low at 0.427 Urine analysis reveals 4+ glucose nitrates and leukocyte esterase positive, WBCs and many bacteria CT of the brain is negative for any acute intracranial process Chest x-ray reveals right middle lobe acute infiltrate Patient was evaluated by cardiology and recommending to continue to monitor for arrhythmias; echocardiogram is ordered; cardiology awaits results of previous stress testing before further recommendations Neurology recommending routine EEG to rule out any epileptiform discharge or active seizures; MRI of the brain has been ordered with seizure protocol Objective - Vital Signs Vital signs: Vital Signs Temp 98.5 F 05/29/23 14:00 Pulse 83 05/30/23 13:00 Resp 20 05/30/23 13:00 BP 122/55 05/30/23 13:00 Pulse Ox 97 05/30/23 13:00 FiO2 Intake & Output 05/29/23 05/30/23 05/30/23 18:59 06:59 18:59 Weight 104.326 kg - Exam Head exam: Present: atraumatic Eye exam: Present: normal appearance, PERRL, EOMI, other (Mild infraorbital edema) ENT exam: Present: mucous membranes dry Respiratory exam: Present: normal lung sounds bilaterally Cardiovascular Exam: Present: regular rate, normal rhythm GI/Abdominal exam: Present: soft. Absent: distended, tenderness Extremities exam: Present: pedal edema Neurological exam: Present: alert, oriented X3, CN II-XII intact. Absent: motor sensory deficit Motor strength exam: RUE: 5, LUE: 5, RLE: 5, LLE: 5 Psychiatric exam: Present: normal affect, normal mood Skin exam: Present: normal color - Labs CBC & Chem 7: 05/30/23 07:44 05/30/23 07:44 Labs: Abnormal Lab Results - Last 24 Hours (Table) 05/30/23 05/30/23 05/30/23 Range/Units 07:44 07:44 12:06 Plt Count 137 L (150-450) k/uL Glucose 162 H (74-99) mg/dL POC Glucose (mg/dL) 141 H (70-110) mg/dL AST 51 H (14-36) U/L Total Protein 6.0 L (6.3-8.2) g/dL Assessment and Plan Assessment: 1. Acute syncope; patient reports multiple episodes of syncope and fall; report s last episode was associated with chest discomfort; we will admit to telemetry; monitor EKG and trend troponin -- Cardiology is consulted; appreciate recommendations 2. UTI; UA is positive for WBCs, bacteria, leukocyte esterase and nitrates; patient has been placed on IV Levaquin; adjust antibiotics once culture results are available 3. Possible pneumonia; patient has been placed on Levaquin 500 milligrams daily; will add bronchodilator nebulizer treatments; monitor CBC, CRP and procalcitonin 4. Fall with elevated CK; mild rhabdomyolysis; continue with IV fluid hydration 5. Hypertension; prazosin 1 mg nightly 6. Hyperlipidemia; Crestor 5 mg p.o. nightly 7. Hypothyroidism; patient is currently on levothyroxine 50 mcg daily; TSH is low with normal free T4 and T3; will continue same dose 8. Diabetes mellitus type 2; patient is currently on glipizide, Jardiance and metformin; we will hold glipizide while inpatient; monitor Accu-Cheks ACHS with insulin sliding scale 9. Anxiety/obsessive-compulsive disorder; patient is currently on Luvox 150 mg twice daily, Klonopin 1 mg twice daily, hydroxyzine 50 mg p.o. nightly and trazodone 50 mg nightly DVT prophylaxis; SCDs/subcu heparin CODE STATUS; full code
[2023-05-30] MEDS ORDERED: ONDANSETRON 4 MG/2 ML VIAL IVP PRN (22:17)
[2023-05-31 08:53] LABS: BUN/Creat Ratio 13.22 Ratio (12.00-20.00); Blood Urea Nitrogen 11.9 mg/dL (9.0-27.0); Calcium 8.9 mg/dL (8.7-10.3); Carbon Dioxide 30.4 mmol/L (21.6-31.8); Chloride 102 mmol/L (96-109); Glucose 159 mg/dL (70-110); Potassium 4.3 mmol/L (3.5-5.5); Sodium 142 mmol/L (135-145)
--- NOTE | 2023-05-31 10:08 | CA ---
Transthoracic Echo Report Name: Crystal Osman Age: 57 Gender: F : 1965 Exam Date: 05/31/2023 08:13 Exam Location: [facility] Ht (in): 67 Wt (lb): 210 Ordering Physician: Yamil Miranda MD ([id number]) Attending/Referring Phys: Crane Operator Cab Petrona Hoyos RDCS Procedure CPT: Indications: CP Cardiac Hx: Technical Quality: Fair Contrast 1: Total Dose (mL): Contrast 2: Total Dose (mL): MEASUREMENTS (Male / Female) Normal Values 2D ECHO LV Diastolic Diameter PLAX 3.4 cm 4.2 - 5.9 / 3.9 - 5.3 cm LV Systolic Diameter PLAX 2.3 cm IVS Diastolic Thickness 1.3 cm 0.6 - 1.0 / 0.6 - 0.9 cm LVPW Diastolic Thickness 1.3 cm 0.6 - 1.0 / 0.6 - 0.9 cm LV Relative Wall Thickness 0.8 RV Internal Dim ED PLAX 4.2 cm LA Volume 38.9 cm??? 18 - 58 / 22 - 52 cm??? LA Volume Index 18.1 cm???/m??? 16 - 28 cm???/m??? M-MODE Aortic Root Diameter MM 3.3 cm LA Systolic Diameter MM 4.3 cm LA Ao Ratio MM 1.3 AV Cusp Separation MM 1.4 cm DOPPLER AV Peak Velocity 160.4 cm/s AV Peak Gradient 10.3 mmHg AV Mean Velocity 123.4 cm/s AV Mean Gradient 6.4 mmHg AV Velocity Time Integral 33.8 cm LVOT Peak Velocity 117.8 cm/s LVOT Peak Gradient 5.6 mmHg LVOT Velocity Time Integral 25.0 cm MV Area PHT 2.7 cm??? Mitral E Point Velocity 97.3 cm/s Mitral A Point Velocity 100.3 cm/s Mitral E to A Ratio 1.0 MV Deceleration Time 285.0 ms MV E' Velocity 10.9 cm/s Mitral E to MV E' Ratio 9.0 TR Peak Velocity 286.7 cm/s TR Peak Gradient 32.9 mmHg Right Ventricular Systolic Press 37.6 mmHg FINDINGS Left Ventricle Moderately increased left ventricular wall thickness. Left ventricular cavity size normal. Normal left ventricular systolic function with no obvious regional wall motion abnormalities. Left ventricular ejection fraction is estimated at 55-60 %. Right Ventricle Mild right ventricular dilatation. Mild pulmonary hypertension. Right Atrium Normal right atrial size. Left Atrium Normal left atrial size. Mitral Valve Structurally normal mitral valve. No mitral stenosis, regurgitation or prolapse. Aortic Valve No aortic valve stenosis or regurgitation. Tricuspid Valve Mild tricuspid regurgitation. Pulmonic Valve Structurally normal pulmonic valve. Pericardium No pericardial effusion. Aorta Normal size aortic root and proximal ascending aorta. CONCLUSIONS Normal LV function Mild tricuspid regurgitation Previewed by: Dr. Roberto Ernst MD (Electronically Signed) Final Date: 31 May 2023 10:07
[2023-05-31 17:03] VITALS: BMI 36.0
--- NOTE | 2023-05-31 17:15 | MR ---
EXAMINATION TYPE: MR brain wo/w con DATE OF EXAM: 05/31/2023 4:37 PM CLINICAL INDICATION:Female, 57 years old with history of seizure, Possible Seizure COMPARISON: 05/29/2023 TECHNIQUE: Multi planar, multi sequence imaging was performed through the brain including: T1, T2, In version recovery, susceptibility weighted imaging and gradient echo imaging and Diffusion weighted im aging. The patient was then given intravenous contrast and multi planar, T1 fat-saturation images wer e obtained. IV Contrast: 10ml cc Gadavist FINDINGS: The gonzalez-white junctions, ventricular system, basal cisterns appear unremarkable. Diffusion-weighted imaging shows no evidence of restricted diffusion to suggest acute/subacute infarct. Intracranial ar terial flow voids are maintained. Midline structures show no abnormality. Scattered foci of high T2 s ignal intensity are seen within the periventricular white matter. The susceptibility weighted images do not reveal any evidence for micro-hemorrhage. After administration of gadolinium, no abnormal enha ncement is seen. The mesial temporal lobes look symmetric. The bone marrow signal is within normal limits. Paranasal sinuses and mastoid air cells: No significant paranasal sinus disease. Visualized orbits: Orbital contents are intact. IMPRESSION: 1. No evidence of intracranial mass, acute/subacute infarct, or abnormal enhancement. 2. Nonspecific white matter changes, likely related to small vessel ischemic disease.
--- NOTE | 2023-05-31 22:19 | P.CONS ---
History of Present Illness - Reason for Consult Consult date: 05/31/23 Pneumonia Requesting physician: Sary Morales - Chief Complaint Generalized weakness and not feeling well x few days - History of Present Illness Patient is a 57-year-old female with past medical history significant for fibromyalgia interstitial cystitis fatty liver PTSD anxiety depression presenting to the hospital 2 days ago for evaluation of generalized weakness patient has been complaining of feeling weak all over and also noticed to have increasing swelling to the face and lower extremity and generalized body swelling patient symptom has been going on for a day before presentation to the hospital denies any focal weakness patient also mention recently did have a extraction of the left lower jaw teeth however denies having any worsening pain to that area or any difficulty swallowing patient denies having any chest pain shortness of breath did have a cough but not bring up any sputum some nausea but no vomiting no abdominal pain no diarrhea patient on presentation to the hospital was afebrile did have a low-grade fever of 99.6 F patient was not tachycardic or hypotensive mildly hypoxic currently on 2 L nasal cannula oxygen she did have a white count of 11.3 creatinine was normal liver enzymes are normal urine has been mildly positive influenza RSV and COVID testing was negative patient did have a chest x-ray right middle lobe acute infiltrate and or atelectasis patient was started on Levaquin because of her penicillin allergy however she has taken Keflex without any problem infectious disease was consulted today regarding pneumonia antibiotic therapy Review of Systems Positive point and negatives has been mentioned in the HPI, complete review of systems was performed and all other systems are negative Past Medical History Past Medical History: Fibromyalgia Additional Past Medical History / Comment(s): interstitial cystitis, fatty liver with a lesion, DDD, OA, gastroparesis, liver lesion, IBS, jayce danlos syndrome. History of Any Multi-Drug Resistant Organisms: None Reported Past Surgical History: Appendectomy, Hysterectomy Additional Past Surgical History / Comment(s): exploratory lap, lymph node removal left leg, blood poisoning, spinal fusion, bladder mesh failed, endometrosis surgery, polyp removal. 3 bronchs due to fungal pneumonia Past Anesthesia/Blood Transfusion Reactions: No Reported Reaction Past Psychological History: Anxiety, Depression, Panic Disorder, PTSD Additional Psychological History / Comment(s): CPTSD Smoking Status: Current every day smoker Past Alcohol Use History: None Reported Past Drug Use History: None Reported - Past Family History Father Additional Family Medical History / Comment(s): on hospice Mother Additional Family Medical History / Comment(s): on hospice Medications and Allergies Home Medications Medication Instructions Recorded Confirmed Type Albuterol Inhaler [Ventolin Hfa 1 - 2 puff INHALATION RT-Q6H PRN 05/29/23 05/29/23 History Inhaler] Buprenorphine HCl/Naloxone HCl 1 film SL DAILY 05/29/23 05/29/23 History [Buprenorphine-Nalox 2-0.5MG Fm] Diphenoxylate HCl/Atropine 1 tab PO QID PRN 05/29/23 05/29/23 History [Lomotil 2.5-0.025 mg Tablet] Empagliflozin [Jardiance] 25 mg PO DAILY 05/29/23 05/29/23 History Gabapentin 600 mg PO TID 05/29/23 05/29/23 History Levothyroxine Sodium [Synthroid] 50 mcg PO DAILY 05/29/23 05/29/23 History Midodrine [ProAmatine] 5 mg PO BID 05/29/23 05/29/23 History Ondansetron Odt [Zofran ODT] 4 mg PO Q6H PRN MDD A 05/29/23 05/29/23 History Oxybutynin Chloride [oxyBUTYnin 10 mg PO HS 05/29/23 05/29/23 History chloride ER] Prazosin [Minipress] 1 mg PO HS 05/29/23 05/29/23 History Rosuvastatin Calcium 5 mg PO HS 05/29/23 05/29/23 History clonazePAM [KlonoPIN] 1 mg PO BID 05/29/23 05/29/23 History clonazePAM [KlonoPIN] 1 mg PO DAILY PRN 05/29/23 05/29/23 History fluvoxaMINE MALEATE [Luvox] 150 mg PO BID 05/29/23 05/29/23 History glipiZIDE [Glucotrol] 10 mg PO AC-BRKFST 05/29/23 05/29/23 History hydrOXYzine HCL [Atarax] 50 mg PO HS 05/29/23 05/29/23 History lidocaine HCL [Aspercreme 1 applic TOPICAL QID PRN 05/29/23 05/29/23 History Lidocaine] metFORMIN HCL ER [Glucophage XR] 1,000 mg PO W/SUPPER 05/29/23 05/29/23 History methocarbamoL [Robaxin] 500 mg PO TID PRN 05/29/23 05/29/23 History sitaGLIPtin [Januvia] 100 mg PO DAILY 05/29/23 05/29/23 History tiZANidine [Zanaflex] 4 mg PO Q8HR PRN 05/29/23 05/29/23 History traZODone HCL [Desyrel] 50 mg PO HS 05/29/23 05/29/23 History Acetaminophen Tab [Tylenol] 650 mg PO Q6HR PRN tab 06/02/23 Rx Budesonide-Formot 160-4.5 Mcg 2 puff INHALATION RT-BID #1 each 06/02/23 Rx [Symbicort 160-4.5 Mcg Inhaler] Ipratropium-Albuterol Nebulize 3 ml INHALATION RT-Q4H 30 Days 06/02/23 Rx [Duoneb 0.5 mg-3 mg/3 ml Soln] #100 each Ipratropium-Albuterol Nebulize 3 ml INHALATION RT-QID PRN each 06/02/23 Rx [Duoneb 0.5 mg-3 mg/3 ml Soln] Levofloxacin [Levaquin] 500 mg PO DAILY@1800 7 Days #7 tab 06/02/23 Rx Allergies Allergy/AdvReac Type Severity Reaction Status Date / Time Penicillins Allergy Anaphylaxis Verified 05/29/23 17:43 meperidine [From Demerol] AdvReac Unknown Verified 05/29/23 17:43 Physical Exam Vitals: Vital Signs Temp Pulse Pulse Pulse Pulse Pulse Resp 05/31/23 07:00 97.9 F 102 H 108 H 103 H 16 05/31/23 02:11 99.0 F 89 16 05/30/23 21:14 99.2 F 77 15 05/30/23 18:00 67 16 BP BP BP BP BP Pulse Ox 05/31/23 07:00 120/76 118/64 129/80 95 05/31/23 02:11 108/70 94 L 05/30/23 21:14 145/83 95 05/30/23 18:00 121/70 95 Intake and Output 05/31/23 05/31/23 05/31/23 06:59 14:59 22:59 Intake Total 118 Balance 118 Intake: Oral 118 Other: # Voids 1 1 GENERAL DESCRIPTION: Middle-aged female lying in bed, no distress. No tachypnea or accessory muscle of respiration use. HEENT: Shows Pallor , no scleral icterus. Oral mucous membrane is dry. No pharyngeal erythema or thrush NECK: Trachea central, no thyromegaly. LUNGS: Unlabored breathing. Decreased breath sound at the base HEART: S1, S2, regular rate and rhythm. No loud murmur ABDOMEN: Soft, no tenderness , guarding or rigidity, no organomegaly EXTREMITIES: No edema of feet. SKIN: No rash, no masses palpable. NEUROLOGICAL: The patient is awake, alert, oriented x3, mood and affect normal. Results CBC & Chem 7: 06/02/23 06:27 06/02/23 06:27 Labs: Abnormal Lab Results - Last 24 Hours (Table) 05/31/23 Range/Units 04:19 Glucose 159 H (70-110) mg/dL Microbiology - Last 24 Hours (Table) 05/29/23 10:11 Urine Culture - Preliminary Urine,Voided Gram Neg Bacilli Assessment and Plan (1) Pneumonia Status: Acute Code(s): J18.9 - PNEUMONIA, UNSPECIFIED ORGANISM SNOMED Code(s): 663966416 (2) UTI (urinary tract infection) Status: Acute Code(s): N39.0 - URINARY TRACT INFECTION, SITE NOT SPECIFIED SNOMED Code(s): 85036984 (3) Penicillin allergy Status: Acute Code(s): Z88.0 - ALLERGY STATUS TO PENICILLIN SNOMED Code(s): 04442353 (4) Leukocytosis Status: Acute Code(s): D72.829 - ELEVATED WHITE BLOOD CELL COUNT, UNSPECIFIED SNOMED Code(s): 567439863 Plan: 1patient presented hospital multiple symptoms generalized weakness patient also complaining of fever at home and she did have elevated white count chest x-ray with right middle lobe infiltrate concerning for pneumonia likely community- acquired 2-patient with a penicillin allergy that will limit the number of antibiotics safe to use 3-try to obtain a sputum for Gram stain culture check a CRP and a procalcitonin 4-patient did have a mild urinary symptoms and positive UA component of UTI not entirely excluded 5-continue with the Levaquin while waiting for the workup to be completed We will follow on clinical condition and cultures to further adjust medication if needed Thank you for this consultation we will follow the patient along with you Dictation was produced using [employer] dictation software. please excuse any grammatical, word or spelling errors. Time with Patient: Greater than 30
--- NOTE | 2023-06-01 05:38 | EEG ---
ELECTROENCEPHALOGRAM REPORT PREAMBLE: This is a 57-year-old female with recurrent syncopal episodes with posturing and convulsion. The patient has been having pain throughout the body especially in her head and face. CURRENT MEDICATIONS: 1. Lipitor. 2. Klonopin. 3. Farxiga. 4. Lomotil. 5. Luvox. 6. Neurontin. 7. Atarax. 8. Levofloxacin. 9. Synthroid. 10.Ativan. 11.Metformin. 12.Robaxin. 13.ProAmatine. 14.Morphine. 15.Buprenorphine. 16.Zofran. EEG FINDINGS: This is a 21-channel digital EEG recorded with video component, utilizing 10/20 international system with referential and bipolar montages. The patient was mostly asleep during most of the study with presence of bilaterally symmetric theta frequency rhythm with lot of sleep spindles and vertex waves. In the early part of the study, the patient was awake, with presence of well developed, well regulated, moderate to high amplitude, 9 hertz alpha activity seen in posterior head region, reactive to eye opening and closing. Photic driving response was not seen. No focal or generalized epileptiform activity was seen. EKG channel showed no obvious arrhythmia. IMPRESSION: This is a normal EEG during wakefulness, drowsiness, and stage 2 sleep. No focal, lateralized, or epileptiform activity was seen. MMODL / IJN: [id number] /
--- NOTE | 2023-06-01 08:23 | PN ---
PROGRESS NOTE DATE OF SERVICE: 05/31/2023 HISTORY OF PRESENT ILLNESS: This is a 57-year-old woman, who was admitted with generalized weakness, also had syncope. The patient also had UTI. Multiple evaluations and consultations are ongoing at this time. CT of the brain, which I reviewed personally showed no acute abnormality. Orthostatic vitals were negative. PAST MEDICAL HISTORY: Reviewed. REVIEW OF SYSTEMS: 14-point review is negative except as mentioned earlier. CURRENT MEDICATIONS: Reviewed include Lipitor, dose and rest of medications noted. PHYSICAL EXAMINATION: VITAL SIGNS: Pulse is 102, blood pressure n, respirations 16. CHEST: Clear to auscultation. CARDIOVASCULAR: S1, S2. ABDOMEN: Soft. NERVOUS SYSTEM: Nonfocal. LABORATORY DATA: Reviewed. ASSESSMENT: 1. Syncope for evaluation. 2. Urinary tract infection. 3. Possible pneumonia. 4. Hypertension. 5. Hyperlipidemia. RECOMMENDATIONS: Recommend to continue current medications. Continue symptomatic treatment. Otherwise, at this time I recommend COVID-19, D-dimer. If the D-dimer is positive, CT angio of the chest, and empiric antibiotics. Also get Infectious Disease evaluation for the possible pneumonia in the right lower lobe. Neurology has seen the patient. Guarded prognosis. Further recommendations to follow. The patient will require more than 2 nights stay for evaluation and treatment of the above-mentioned medical issues. MMODL / IJN: [id number] / NIKKO
--- NOTE | 2023-06-01 08:34 | P.PN ---
Subjective Progress Note Date: 05/31/23 Chief complaint: Change in mental status History of present illness: This is a 57-year-old female patient with a past medical history significant for overweight and sleep apnea currently she has not been using a CPAP machine as well as diabetes and dyslipidemia and multiple comorbid conditions. She was brought to the hospital by ambulance. The patient has been experiencing intermittent episodes of change in mental status witnessed by her sister. The change in mental status seems to be consistent with seizure. The patient has been experiencing upper and lower extremities spasming movement associated with incontinence. Beside that she describes intermittent episodes of chest discomfort. The discomfort is in the middle of the chest as a dull kind of feeling and sometimes sharp kind of feeling with no radiation to the arms or neck or shoulders or back and no heart racing or fluttering. She stated that she follows with a cardio clinician in [place] area and in January 2023 she underwent further cardiac testing including stress test and echocardiogram. She underwent workup during her hospital stay including an EKG showing sinus mechanism with no significant ST or T wave abnormalities and also she did not have any episode of arrhythmia while she is here. Troponin came in to be unremarkable. CT scan of the brain came in to be unremarkable neurology is on the case as well. The examination is remarkable for stable vital signs with regular rate and rhythm and clear breathing sounds bilaterally and no edema was noted. 3/4 Patient states that she follows with an outside cardio clinician. She states she had some vomiting and fever last night and complains of a headache and allergic reaction. Patient also had the previous workup in January in [place] which we will try to obtain the results. Echocardiogram reveals EF of 55 to 60%, mild TR. The examination is remarkable for stable vital signs with regular rate and rhythm and clear breathing sounds bilaterally and no edema was noted. Assessment Change in mental status clinically is consistent with seizure Intermittent episodes of chest discomfort Multiple comorbid conditions Plan Monitor the patient for arrhythmia Obtain an echocardiogram with Doppler She was ruled out for acute coronary syndrome Follow-up with the patient Nurse practitioner note has been reviewed, I agree with documented findings and plan of care. Patient was seen and examined. Objective - Vital Signs Vital signs: Vital Signs Temp 97.9 F 05/31/23 07:00 Pulse 103 H 05/31/23 07:00 Resp 16 05/31/23 07:00 BP 129/80 05/31/23 07:00 Pulse Ox 95 05/31/23 07:00 FiO2 Intake & Output 05/30/23 05/31/23 05/31/23 18:59 06:59 18:59 Weight 104.326 kg Other: # Voids 1 - Labs CBC & Chem 7: 05/30/23 07:44 05/31/23 04:19 Labs: Abnormal Lab Results - Last 24 Hours (Table) 05/30/23 05/31/23 Range/Units 12:06 04:19 Glucose 159 H (70-110) mg/dL POC Glucose (mg/dL) 141 H (70-110) mg/dL Microbiology - Last 24 Hours (Table) 05/29/23 10:11 Urine Culture - Preliminary Urine,Voided Gram Neg Bacilli
--- NOTE | 2023-06-01 08:36 | P.PN ---
Subjective Progress Note Date: 06/01/23 Chief complaint: Change in mental status History of present illness: This is a 57-year-old female patient with a past medical history significant for overweight and sleep apnea currently she has not been using a CPAP machine as well as diabetes and dyslipidemia and multiple comorbid conditions. She was brought to the hospital by ambulance. The patient has been experiencing intermittent episodes of change in mental status witnessed by her sister. The change in mental status seems to be consistent with seizure. The patient has been experiencing upper and lower extremities spasming movement associated with incontinence. Beside that she describes intermittent episodes of chest discomfort. The discomfort is in the middle of the chest as a dull kind of feeling and sometimes sharp kind of feeling with no radiation to the arms or neck or shoulders or back and no heart racing or fluttering. She stated that she follows with a sandblast operator in [place] area and in January 2023 she underwent further cardiac testing including stress test and echocardiogram. She underwent workup during her hospital stay including an EKG showing sinus mechanism with no significant ST or T wave abnormalities and also she did not have any episode of arrhythmia while she is here. Troponin came in to be unremarkable. CT scan of the brain came in to be unremarkable neurology is on the case as well. The examination is remarkable for stable vital signs with regular rate and rhythm and clear breathing sounds bilaterally and no edema was noted. 05/30 Patient states that she follows with an outside sandblast operator. She states she had some vomiting and fever last night and complains of a headache and allergic reaction. Patient also had the previous workup in January in [place] which we will try to obtain the results. Echocardiogram reveals EF of 55 to 60%, mild TR. The examination is remarkable for stable vital signs with regular rate and rhythm and clear breathing sounds bilaterally and no edema was noted. 05/31 Yesterday, patient underwent echocardiogram which revealed normal LV function, mild MR. Orthostatics done this morning are negative. Blood pressure 128/76, heart rate 100, pulse ox 92% on 2 L nasal cannula. Additional lab work reveals D-dimer 0.56. Sed rate 24, C-reactive protein 1.1 and procalcitonin 0.23. The examination is remarkable for stable vital signs with regular rate and rhythm and clear breathing sounds bilaterally and no edema was noted. Assessment Change in mental status clinically is consistent with seizure Intermittent episodes of chest discomfort Multiple comorbid conditions Plan She was ruled out for acute coronary syndrome Patient is cleared for discharge. No plan for additional cardiac workup at this time. Cardiology will sign off this case and follow on an as-needed basis. Please reconsult for any new concerns. Patient may follow-up with her primary sandblast operator in one to 2 weeks. Nurse practitioner note has been reviewed, I agree with documented findings and plan of care. Patient was seen and examined. Objective - Vital Signs Vital signs: Vital Signs Temp 98.5 F 06/01/23 04:02 Pulse 100 06/01/23 04:02 Resp 19 06/01/23 04:02 BP 128/76 06/01/23 04:02 Pulse Ox 92 L 06/01/23 04:02 FiO2 Intake & Output 05/31/23 06/01/23 06/01/23 18:59 06:59 18:59 Intake Total 118 Balance 118 Weight 104.326 kg Intake: Oral 118 Other: # Voids 1 1 - Labs CBC & Chem 7: 05/30/23 07:44 05/31/23 04:19 Labs: Abnormal Lab Results - Last 24 Hours (Table) 05/31/23 05/31/23 05/31/23 Range/Units 04:19 17:52 17:52 Glucose 159 H (70-110) mg/dL C-Reactive Protein 1.1 H (<1.0) mg/dL Procalcitonin 0.23 H (0.02-0.09) ng/mL Microbiology - Last 24 Hours (Table) 05/29/23 10:11 Urine Culture - Final Urine,Voided Escherichia coli
[2023-06-01 08:38] LABS: Basophils # (A) 0.03 X 10*3/uL (0.00-0.10); Basophils % (A) 0.4 %; Eosinophils # (A) 0.35 X 10*3/uL (0.04-0.35); Eosinophils % (A) 5.1 %; HCT 43.4 % (37.2-46.3); HGB 14.1 g/dL (12.0-15.0); Lymphocytes % (A) 46.6 %; MCH 31.8 pg (27.0-32.0); MCHC 32.5 g/dL (32.0-37.0); MCV 97.7 FL (80.0-97.0); Mean Platelet Volume 10.9 FL (9.5-12.2); Monocytes # (A) 0.47 X 10*3/uL (0.20-1.00); Monocytes % (A) 6.9 %; NRBC Per 100 WBC 0 X 10*3/uL (0.00-0.01); Neutrophils # (A) 2.79 X 10*3/uL (1.80-7.70); Neutrophils % (A) 40.7 %; Platelet Count 149 X 10*3/uL (140-440); RBC 4.44 X 10*6/uL (4.10-5.20); RDW 14.6 % (11.5-14.5); WBC 6.86 X 10*3/uL (4.50-10.00)
[2023-06-01 08:46] LABS: ALT 23 U/L (8-44); AST 37 U/L (13-35); Albumin 4.2 g/dL (3.8-4.9); Albumin/Globulin Ratio 1.75 Ratio (1.60-3.17); Alkaline Phosphatase 88 U/L (41-126); BUN/Creat Ratio 13.62 Ratio (12.00-20.00); Blood Urea Nitrogen 10.9 mg/dL (9.0-27.0); Calcium 8.9 mg/dL (8.7-10.3); Carbon Dioxide 29.7 mmol/L (21.6-31.8); Chloride 101 mmol/L (96-109); Globulin 2.4 g/dL (1.6-3.3); Glucose 168 mg/dL (70-110); Potassium 4.5 mmol/L (3.5-5.5); Sodium 139 mmol/L (135-145); Total Bilirubin <0.2 mg/dL (0.3-1.2); Total Protein 6.6 g/dL (6.2-8.2)
--- NOTE | 2023-06-01 10:22 | P.PN ---
Subjective Progress Note Date: 06/01/23 Patient initially seen by Dr. Akira Story. Please refer to his note for details. Per Dr. Story signoff note, patient has presented with recurrent syncopal spells with convulsion. Rule out seizure. I spoke to patient in detail. She states that she believes that these were not seizures. It was exaggerated muscle spasm or whole-body contortion. Patient states that her whole body was "swollen shut". She got up to go to the bathroom. As soon as her feet touched the floor, the pain shot up her whole body and she dropped to the knees. She crawled to the bathroom. Her parents are in hospice, who came over. She was in whole body pain therefore urinated on herself. Patient states that while talking to them, she would go to sleep. Patient states that she has not slept at all for 48 hours, on Wednesday and night going into Wednesday. She would doze off. Patient states when EMS came, her pulse ox would drop to 60s to 70s. She would tend to pass out, and they will try to alert her and her oxygen saturation would improve. She would have waves of pain, and her whole body will go in contortion. She would be aware of her surroundings. Patient states that she knows a lot of people with seizures, and her was not seizure. It was just exaggerated muscle spasm. At present patient denies any symptoms. Some of the workup during his hospital visit consisted of: CK levels 557, AST is 45, sodium is 136, glucose is 90, TSH is 0.4-7 the free T4 is 1. due to Calcium is 8.8 Plasma lactic acid vein: 1.2 Urinalysis seems possible for acute UTI. Then nitrate is positive, leukocyte esterase small, urine bacteria is many. CT of the head is reported as no acute intracranial process. Personally reviewed the CT and agree with the report. EKG is reported as sinus rhythm. Intermediate axis. Low QRS voltage. Objective - Vital Signs Vital signs: Vital Signs Temp 99.0 F 05/31/23 19:38 Pulse 91 05/31/23 19:38 Resp 16 05/31/23 19:38 BP 154/72 05/31/23 19:38 Pulse Ox 95 05/31/23 19:38 FiO2 Intake & Output 05/31/23 05/31/23 06/01/23 06:59 18:59 06:59 Intake Total 118 Balance 118 Weight 104.326 kg 104.326 kg Intake: Oral 118 Other: # Voids 1 1 1 - Exam Hide mental status, speech and language functions are normal. Cranial nerves are normal. On muscle strength testing there is no drift and the strength is normal. No ataxia. Sensations equal. - Labs CBC & Chem 7: 06/01/23 05:47 06/01/23 05:47 Labs: Abnormal Lab Results - Last 24 Hours (Table) 05/31/23 05/31/23 Range/Units 04:19 17:52 Glucose 159 H (70-110) mg/dL C-Reactive Protein 1.1 H (<1.0) mg/dL Microbiology - Last 24 Hours (Table) 05/29/23 10:11 Urine Culture - Final Urine,Voided Escherichia coli Assessment and Plan Assessment: * Probable exaggerated muscle spasms, probable not seizures. Patient was sleep deprived for 48 hours, and was in diffuse body pain which triggered these spasms. Patient states that her blood pressure was very low in 70s/40s when EMS arrived, which may have triggered these events. EMS flowsheet not avai lab for review. Doubt seizures. * Polypharmacy History of orthostatic hypotension, on midodrine since October 2022. Recurrent syncopal episode with convulsion/posturing: Rule out seizure. Generalized edema--unsure cause. Unsure if due to medication induced (Gabapentin usually cause peripheral edema) Possible acute UTI. Orthostatic hypotension and is on Midodrine History of an anxiety and major depression History of PTSD Tobacco use but is cutting down (currently smoking 1-2 cigarettes daily). Family history of seizure (sister) Plan: * EEG was performed, which is normal during wakefulness, drowsiness and stage II sleep. No focal, lateralized or epileptiform activity was seen. * MRI of the brain with and without contrast revealed no evidence of intracranial mass, acute/subacute infarct or abnormal enhancement. Nonspecifi c white matter changes, likely related to small vessel ischemic disease. I personally reviewed MRI agree with the findings. * Orthostatics were checked, supine blood pressure 154/72 with pulse rate of 91, sitting 143/82, pulse 94, standing 138/88 with pulse of 99. Orthostatics negative. * Stop tramadol, as it can lower seizure threshold. Tramadol started in the hospital, not taking outpatient. * No indication for antiepileptic medication, as patient believes these are not seizures and I seem to agree with it. * Although these are probably not seizures, but because of the exaggerated muscle spasms, would suggest avoid driving, climbing ladders, operating dangerous machinery's or unsupervised swimming. These restrictions apply until cleared by her primary physician outpatient. * Cardiology is consulted for syncopal episodes. * Patient was counseled on tobacco cessation. * TSH is low 0.427, with normal free T4 of 1.22. Will defer to IM. * We'll defer the rest of the medical measure the primary and other specialists * Neurologically clear for discharge.
[2023-06-01] MEDS: NALOXONE HCL SUBLINGUAL SCH (11:01)
[2023-06-01] MEDS: [UNRECOGNIZED DRUG - OTHER] SUBLINGUAL SCH (11:01)
[2023-06-01] MEDS: BUPRENORPHINE HCL SUBLINGUAL SCH (11:01)
--- NOTE | 2023-06-01 12:23 | PN ---
PROGRESS NOTE DATE OF SERVICE: 06/01/2023 SUBJECTIVE: This 57-year-old woman was admitted with syncope, also had possibly right lower lobe pneumonia. The patient has UTI also. The patient is on empiric antibiotics at this time. Multiple consultants are following the patient closely. MRI has been reported as negative. The patient is on Levaquin. PAST MEDICAL HISTORY: Reviewed. REVIEW OF SYSTEMS: A 14-point review is negative except as mentioned. CURRENT MEDICATIONS: Reviewed, Levaquin. PHYSICAL EXAMINATION: VITAL SIGNS: Pulse is 77, blood pressure minimal orthostatic changes present. HEENT: Conjunctivae normal. CARDIOVASCULAR: S1, S2. RESPIRATIONS: Few scattered rhonchi. ABDOMEN: Soft. NERVOUS SYSTEM: Nonfocal. LABORATORY DATA: Noted. ASSESSMENT: 1. Syncope for evaluation, possibly secondary to orthostatic hypotension. 2. Right lower lobe pneumonia. 3. UTI. 4. Hypertension history. 5. Hyperlipidemia. RECOMMENDATIONS: Recommended to continue current management, continue symptomatic treatment. Recommended serum cortisol. Continue with the current medications. Add bronchodilators to current regimen. Otherwise, I would also recommend initiate Florinef to the current regimen. Continue to monitor. Guarded prognosis. Further recommendations to follow. See orders for details. MMODL / IJN: [id number] /
[2023-06-01] MEDS ORDERED: IPRATROPIUM-ALBUTEROL 3 ML NEB INHALATION PRN (15:22)
[2023-06-01] MEDS: IPRATROPIUM-ALBUTEROL 3 ML NEB INHALATION SCH (15:32)
[2023-06-01] MEDS: FLUDROCORTISONE 0.1 MG TAB PO SCH (17:08)
[2023-06-01] MEDS: LEVOFLOXACIN 500 MG TAB PO SCH (18:00)
[2023-06-01] MEDS: SYMBICORT 160-4.5 MCG INHALER INHALATION SCH (20:20)
[2023-06-01] MEDS: PRAZOSIN 1 MG CAP PO SCH (22:21)
[2023-06-02 07:30] VITALS: BP 112/67; RESP 19; TEMP 98
--- NOTE | 2023-06-02 07:47 | XR ---
EXAMINATION TYPE: XR chest 1V portable DATE OF EXAM: 06/02/2023 HISTORY: Shortness of breath. COMPARISON: 05/29/2023 TECHNIQUE: Single view of the chest is submitted. FINDINGS: Demonstrated are scattered senescent parenchymal change. There is no evidence for focal infiltrate. Chronic elevation right hemidiaphragm. The heart is stable. Hilar and mediastinal structures are within normal limits. Degenerative changes are seen of the dorsal spine. IMPRESSION: 1. Chronic changes without evidence for acute pulmonary disease.
[2023-06-02 11:31] LABS: HGB 13.3 g/dL (12.0-15.0); MCH 31.3 pg (27.0-32.0); MCHC 31.7 g/dL (32.0-37.0); MCV 98.8 FL (80.0-97.0); NRBC Per 100 WBC 0 X 10*3/uL (0.00-0.01); Platelet Count 143 X 10*3/uL (140-440); RBC 4.25 X 10*6/uL (4.10-5.20); RDW 14.4 % (11.5-14.5); WBC 7.01 X 10*3/uL (4.50-10.00)
[2023-06-02 11:32] LABS: Basophils # (A) 0.05 X 10*3/uL (0.00-0.10); Basophils % (A) 0.7 %; Eosinophils # (A) 0.41 X 10*3/uL (0.04-0.35); Eosinophils % (A) 5.8 %; Lymphocytes # (A) 3.05 X 10*3/uL (0.90-5.00); Lymphocytes % (A) 43.5 %; Monocytes # (A) 0.44 X 10*3/uL (0.20-1.00); Monocytes % (A) 6.3 %; Neutrophils # (A) 3.04 X 10*3/uL (1.80-7.70); Neutrophils % (A) 43.4 %
--- NOTE | 2023-06-02 12:41 | CT ---
Exam: CT Chest without contrast. Date: 06/02/2023. Comparison: None available. History: Shortness of breath. Technique: CT examination of the chest was performed without contrast. Coronal and sagittal reformats were performed. CT dose lowering techniques were used, to include: automated exposure control, adjus tment for patient size, and/or use of iterative reconstruction. FINDINGS: Mediastinum and Brittnee: There is no axillary, mediastinal or hilar lymphadenopathy. Pleural and Pericardial spaces: There are no pleural or pericardial effusions. Upper Abdomen: The visualized upper abdomen is unremarkable. Cardiovascular: The thoracic aorta is normal in size. Lung Parenchyma and Airways: There is significant elevation of the right diaphragm. There is some con solidative change in a platelike manner within the right middle lobe along the surface of the elevate d diaphragm which could represent an area of atelectasis with pneumonia not excluded. There are few a dditional bands of linear opacity which are likely atelectasis or scarring. Bones: No fracture or aggressive osseous lesion. IMPRESSION: 1. Elevated right diaphragm with some consolidative change in a platelike appearance in the right olga g base abutting the diaphragmatic surface that is elevated. This could represent a combination of ate lectasis and/or pneumonia. Clinical correlation is recommended. 2. No additional acute findings identified.
[2023-06-02 13:16] LABS: ALT 33 U/L (8-44); AST 60 U/L (13-35); Alkaline Phosphatase 74 U/L (41-126); Blood Urea Nitrogen 12.8 mg/dL (9.0-27.0); Carbon Dioxide 29.5 mmol/L (21.6-31.8); Chloride 100 mmol/L (96-109); Globulin 2.1 g/dL (1.6-3.3); Glucose 191 mg/dL (70-110); Potassium 4.5 mmol/L (3.5-5.5); Sodium 140 mmol/L (135-145); Total Bilirubin 0.3 mg/dL (0.3-1.2); Total Protein 6.1 g/dL (6.2-8.2)
[2023-06-02 16:28] VITALS: PULSE 80
--- NOTE | 2023-06-03 08:25 | P.PN ---
Subjective Progress Note Date: 06/01/23 Principal diagnosis: Reason for follow-up is pneumonia and UTI Patient is a 57-year-old female with past medical history significant for fibromyalgia interstitial cystitis fatty liver PTSD anxiety depression presenting to the hospital for evaluation generalized weakness swelling shortness of breath and cough chest x-ray with right middle lobe infiltrate concerning for possible pneumonia and did have white count of 11.3 and low-grade fever on admission. On today's visit that is 06/01/2023,the patient denies any fever or any chills, patient is breathing comfortably on room air, the patient denies chest pain shortness of breath cough has decreased in intensity no sputum production, patient denies abdominal pain, no nausea vomiting or diarrhea Patient white count is 6.86 creatinine 0.8 procalcitonin was 0.23 Objective - Vital Signs Vital signs: Vital Signs Temp 98.0 F 06/01/23 08:00 Pulse 58 L 06/01/23 08:00 Resp 18 06/01/23 08:00 BP 85/57 06/01/23 08:00 Pulse Ox 92 L 06/01/23 04:02 FiO2 92 06/01/23 08:00 Intake & Output 05/31/23 06/01/23 06/01/23 18:59 06:59 18:59 Intake Total 118 Balance 118 Weight 104.326 kg Intake: Oral 118 Other: # Voids 1 1 - Exam GENERAL DESCRIPTION: Middle-age female lying in bed in no distress RESPIRATORY SYSTEM: Unlabored breathing , decreased breath sounds at bases HEART: S1 S2 regular rate and rhythm , ABDOMEN: Soft , no tenderness EXTREMITIES: No edema feet - Labs CBC & Chem 7: 06/02/23 06:27 06/02/23 06:27 Labs: Abnormal Lab Results - Last 24 Hours (Table) 05/31/23 05/31/23 06/01/23 Range/Units 17:52 17:52 05:47 MCV 97.7 H (80.0-97.0) FL RDW 14.6 H (11.5-14.5) % Glucose (70-110) mg/dL Total Bilirubin (0.3-1.2) mg/dL AST (13-35) U/L C-Reactive Protein 1.1 H (<1.0) mg/dL Procalcitonin 0.23 H (0.02-0.09) ng/mL 06/01/23 Range/Units 05:47 MCV (80.0-97.0) FL RDW (11.5-14.5) % Glucose 168 H (70-110) mg/dL Total Bilirubin <0.2 L (0.3-1.2) mg/dL AST 37 H (13-35) U/L C-Reactive Protein (<1.0) mg/dL Procalcitonin (0.02-0.09) ng/mL Microbiology - Last 24 Hours (Table) 05/29/23 10:11 Urine Culture - Final Urine,Voided Escherichia coli Assessment and Plan (1) Penicillin allergy Status: Acute Code(s): Z88.0 - ALLERGY STATUS TO PENICILLIN SNOMED Code(s): 69943349 (2) Pneumonia Status: Acute Code(s): J18.9 - PNEUMONIA, UNSPECIFIED ORGANISM SNOMED Code(s): 933803990 (3) UTI (urinary tract infection) Status: Acute Code(s): N39.0 - URINARY TRACT INFECTION, SITE NOT SPECIFIED SNOMED Code(s): 46981016 Plan: 1patient presented hospital multiple symptoms generalized weakness patient also complaining of fever at home and she did have elevated white count chest x-ray with right middle lobe infiltrate concerning for pneumonia likely community- acquired 2-patient with a penicillin allergy that will limit the number of antibiotics safe to use 3-sputum not collected patient did have mild elevated procalcitonin 4-patient did have a mild urinary symptoms and positive UA urine culture currently growing gram-negative 5-patient continue with the Levaquin in view of clinical response while waiting for cultures to finalize Dictation was produced using [employer] dictation software. please excuse any gramm atical, word or spelling errors. Time with Patient: Less than 30
--- NOTE | 2023-06-03 08:26 | P.PN ---
Subjective Progress Note Date: 06/02/23 Principal diagnosis: Reason for follow-up is pneumonia and UTI Patient is a 57-year-old female with past medical history significant for fibromyalgia interstitial cystitis fatty liver PTSD anxiety depression presenting to the hospital for evaluation generalized weakness swelling shortness of breath and cough chest x-ray with right middle lobe infiltrate concerning for possible pneumonia and did have white count of 11.3 and low-grade fever on admission. On today's visit that is 06/02/2023,the patient remains to be afebrile, patient is on room air not requiring supplemental oxygen and denies any shortness of breath no chest pain the patient cough has decreased in intensity and not bring up any sputum.Patient denies having any nausea or vomiting, no abdominal pain and no diarrhea has been reported. Patient white count is 7.01 creatinine 0.8 urine grew E. coli that is a sensitive pathogen no blood or sputum culture done Objective - Vital Signs Vital signs: Vital Signs Temp 98 F 06/02/23 07:00 Pulse 68 06/02/23 12:27 Resp 19 06/02/23 07:00 BP 112/67 06/02/23 07:00 Pulse Ox 95 06/02/23 07:00 FiO2 92 06/01/23 08:00 Intake & Output 06/01/23 06/02/23 06/02/23 18:59 06:59 18:59 Intake Total 236 Balance 236 Weight 104.326 kg Intake: Oral 236 Other: # Voids 2 1 - Exam GENERAL DESCRIPTION: Middle-age female lying in bed in no distress RESPIRATORY SYSTEM: Unlabored breathing , decreased breath sounds at bases HEART: S1 S2 regular rate and rhythm , ABDOMEN: Soft , no tenderness EXTREMITIES: No edema feet - Labs CBC & Chem 7: 06/02/23 06:27 06/02/23 06:27 Labs: Abnormal Lab Results - Last 24 Hours (Table) 06/02/23 Range/Units 06:27 MCV 98.8 H (80.0-97.0) FL MCHC 31.7 L (32.0-37.0) g/dL Eosinophils # 0.41 H (0.04-0.35) X 10*3/uL Assessment and Plan (1) Penicillin allergy Status: Acute Code(s): Z88.0 - ALLERGY STATUS TO PENICILLIN SNOMED Code(s): 17974183 (2) Pneumonia Status: Acute Code(s): J18.9 - PNEUMONIA, UNSPECIFIED ORGANISM SNOMED Code(s): 144091958 (3) UTI (urinary tract infection) Status: Acute Code(s): N39.0 - URINARY TRACT INFECTION, SITE NOT SPECIFIED SNOMED Code(s): 38486041 Plan: 1patient presented hospital multiple symptoms generalized weakness patient also complaining of fever at home and she did have elevated white count chest x-ray with right middle lobe infiltrate concerning for pneumonia likely community- acquired 2-patient with a penicillin allergy that will limit the number of antibiotics safe to use 3-sputum not collected patient did have mild elevated procalcitonin 4-patient did have a mild urinary symptoms and positive UA urine culture grew E. coli that is a sensitive pathogen 5-patient has shown clinical improvement with Levaquin which will be continued follow-up in 5 to 7 days on discharge to finish her course of therapy Dictation was produced using [employer] dictation software. please excuse any grammatical, word or spelling errors. Time with Patient: Less than 30
== END 2023-06-02 18:11 | disposition home or self-care (01) | DRG 689 ==
LOC: EC 09:38 → 6NMEDSUR 15:23 → OBSVTOIN 05-31 14:27
PROVIDERS: ADMIT Internal Medicine; ATTEND Internal Medicine
DX: N39.0 Urinary tract infection, site not specified (principal); J18.9 Pneumonia, unspecified organism; J98.11 Atelectasis; Q79.60 Ehlers-Danlos syndrome, unspecified; B96.20 Unspecified Escherichia coli [E. coli] as the cause of diseases classified elsewhere; F17.210 Nicotine dependence, cigarettes, uncomplicated; E03.9 Hypothyroidism, unspecified; E11.43 Type 2 diabetes mellitus with diabetic autonomic (poly)neuropathy; E78.5 Hyperlipidemia, unspecified; F32.9 Major depressive disorder, single episode, unspecified; F41.0 Panic disorder [episodic paroxysmal anxiety]; F42.9 Obsessive-compulsive disorder, unspecified; T79.6XXA Traumatic ischemia of muscle, initial encounter; F43.10 Post-traumatic stress disorder, unspecified; I10 Essential (primary) hypertension; I95.1 Orthostatic hypotension; G47.30 Sleep apnea, unspecified; K58.9 Irritable bowel syndrome, unspecified; W19.XXXA Unspecified fall, initial encounter; K31.84 Gastroparesis; R09.02 Hypoxemia; K75.81 Nonalcoholic steatohepatitis (NASH); E66.3 Overweight; Z28.310 Unvaccinated for COVID-19; Z68.36 Body mass index [BMI] 36.0-36.9, adult; N39.41 Urge incontinence; M79.7 Fibromyalgia; Z79.51 Long term (current) use of inhaled steroids; Z11.52 Encounter for screening for COVID-19; Z28.21 Immunization not carried out because of patient refusal; Z79.84 Long term (current) use of oral hypoglycemic drugs; Z79.890 Hormone replacement therapy; Z79.899 Other long term (current) drug therapy; Z72.820 Sleep deprivation; Z88.0 Allergy status to penicillin; Z98.1 Arthrodesis status; Z86.010 Personal history of colon polyps; Z88.5 Allergy status to narcotic agent; Z87.01 Personal history of pneumonia (recurrent)
CPT/HCPCS: 36415; 70450; 70553; 71045; 71046; 71250; 80048; 80053; 81001; 82533; 82550; 83605; 83735; 83880; 84145; 84439; 84443; 84481; 84484; 85025; 85379; 85610; 85652; 85730; 86140; 87077; 87086; 87186; 87636; 93005; 93306; 94640; 95816; 96365; 96375; 96376; 99285